=== PATIENT | male | born 1975 | race Caucasian/White ===

== ENCOUNTER 2025-01-11 13:29 | Emergency (ER) | payer OTHER, SELFPAY ==
--- OUTSIDE RECORDS SUMMARY | 2024-12-05 19:00 | XMS_ITS | Continuity of Care Document ---
Author Organization [facility] Address [address] [place] [phone] Phone Care Team Providers Care Assistant Hvac Mechanic Name Role Phone Celine REYES, FACC, Magui Unavailable Unavail able Procedures Procedure Date ELECTROCARDIOGRAM REPORT ELECTROCARDIOGRAM REPORT Advance Directives Directive Yes / No Effective Date File Name No Information Encounters Encounter Description Practice Location Reason(s) For Visit Diagnoses Date Provider Providers Copied on Encounter [facility], [address] [place] [address], [address] [place] [address], tel:[phone] [facility] ER No Information Celine Kilgore. [address] [place] [address], [id number], . tel:[phone] Referring Provider: Magui Gresham, [address] [place] [address], [id number]. tel:[phone] [facility], [address] [place] [address], [id number], tel:[phone] [facility] OP No Information Jossue Jesus. [address] [place] [address], [id number], . tel:[phone] Referring Provider: Edin Marcum, [address] [place] [address], [id number]. tel:[phone] Family History Family Member Type Diagnosis Age At Onset No Information Payers Payer name Insurance type Covered constitution party ID Authoriza tiolya(s) AETNA [facility] [id number] Social History Type Description Quantity Date Captured [...]
[2025-01-11] VITALS (11 sets, daily range): BP systolic 92–111; BP diastolic 50–67; PULSE 76–85; RESP 15–20; TEMP 36.5–37.4; O2SAT 92–98
--- NOTE | ~2025-01-11 | CT_ITS ---
EXAMINATION: CT brain wo con DATE: 01/11/2025 14:26 INDICATION: Fall TECHNIQUE: Computed tomography (CT) of the head was performed without intravenous contrast. The dose-length product was 605.33 mGy-cm. COMPARISON: None FINDINGS: No acute intracranial hemorrhage. No mass effect. No midline shift. No hydrocephalus. No skull fracture. Visualized paranasal sinuses and mastoid air cells are clear. IMPRESSION: 1. No acute intracranial hemorrhage. No mass effect. Reviewed, dictated and finalized at location Q.
--- NOTE | 2025-01-11 13:44 | ECG_ITS ---
Test Date: 2025-01-11 14:01:22 Measurements Intervals [place] Rate: 78 P: 46 [place]: 206 QRS: 54 QRSD: 117 T: 57 QT: 398 QTc: 455 Interpretive Statements SINUS RHYTHM CONSIDER INFERIOR INFARCT, AGE INDETERMINATE BORDERLINE T WAVE ABNORMALITY- HIGH LATERAL LEADS ABNORMAL ECG No previous ECG available for comparison Electronically Signed On 01-11-2025 14:26:03 CDT by Desmond Jarvis D.O.
--- NOTE | 2025-01-11 13:48 | PC.NURSE ---
Blood glucose 72
--- OUTSIDE RECORDS SUMMARY | 2025-01-11 13:48 | XMS_ITS | Clinical Summary ---
Author Organization [facility] Address [address] [place] [address] Care Team Providers Care Locker Room Attendant Name Role Phone Mercedes Clinton Primary Care Provider [phone] Medications furosemide (LASIX) 40 MG tablet FUROSEMIDE 40 MG ORAL TABLET 0 Active potassium chloride 10 MEQ CR tablet POTASSIUM CHLORIDE ER 10 MEQ ORAL TABLET EXTENDED RELEASE 0 Active simvastatin (ZOCOR) 20 MG tablet SIMVASTATIN 20 MG ORAL TABLET 0 Active venlafaxine XR (EFFEXOR-XR) 150 MG 24 hr capsule VENLAFAXINE HCL ER 150 MG ORAL CAPSULE EXTENDED RELEASE 24 HOUR 3 Active Active Problems Problem Noted Date Diagnosed Date 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 04/15/2023 04/15/2023 Bipolar disorder 04/15/2023 04/15/2023 Pure hypercholesterolemia 04/15/20232022 Edema 04/15/2023 04/15/2023 Tobacco dependence syndrome 04/15/202303/19 Social History Tobacco Use Types Packs/Day Years Used Date Smoking Tobacco: Never Assessed Sex and Gender Information Value Date Recorded Sex Assigned at Not on file Legal Sex Male 1:11 PM EDT Gender Identity Not on file Sexual Orientation Not on file Plan of Treatment Health Maintenance Due Date Last Done Comments Hepatitis B Vaccine (1 of 3 - 19+ 3-dose series) 08/15 Pneumococcal Vaccine: 50+ Years (1 of 2 - PCV) 993 Colorectal Cancer Screening: Annual FOBT 2022 Colorectal Cancer Screening: Colonoscopy 2022 Colorectal Cancer Screening: Sigmoidoscopy 2022 Influenza Vaccine (#1) 2025 Insurance [facility] ([id number]) Care Teams Locker Room Attendant Relationship Specialty Start Date End Date Mercedes Clinton [address] [facility] [place] [address] PCP - General Family Medicine 02/16/23
--- OUTSIDE RECORDS SUMMARY | 2025-01-11 13:48 | XMS_ITS | Clinical Summary ---
Author Organization [facility] Address [address] [place] [address] Care Team Providers Care Interlocking Machine Operator Name Role Phone Christopher Sanchez MD Primary Care Provider [phone] Source Comments [facility],non-owned Affiliates and Associated Physician Practices is amultiple site organization consisting of ambulatory clinics and hospital sitesin [place], [place], [place] and [place]. This disclosure is being madepursuant to the Care Everywhere program and may not contain all information available regarding this patient. Last updated 18.[facility] Allergies No known active allergies Medications * Be aware that medications may not be up to date on this document. Alwaysverify current medications with the patient. albuterol HFA (Proventil; Ventolin; Proair) 108 (90 Base) MCG/ACT inhaler once daily 10/07/19 23 Active amLODIPine (Norvasc) 2.5 MG tablet once daily 09/15/19 23 Active ARIPiprazole (Abilify) 10 MG tablet at bedtime 09/15/19 23 Active cephalexin (Keflex) 500 MG capsule once daily Active cyproheptadine (Periactin) 4 MG tablet cyproheptadine 4 mg tablet Active desipramine (Norpramin) 100 MG tablet desipramine 100 mg tablet Active diclofenac sodium (Voltaren) 1 % gel as needed 08/12/19 23 Active fenofibrate (Tricor) 145 MG tablet once daily 09/22/19 23 Active Advair Diskus 250-50 MCG/ACT inhaler once daily 08/28/19 23 Active furosemide (Lasix) 40 MG tablet once daily Active HYDROcodone-ryland taminophen ([place]) 10-325 MG tablet at bedtime Active lithium carbonate (Eskalith) 300 MG capsule lithium carbonate 300 mg capsule Active hydrocortisone valerate (Westcort) 0.2 % cream hydrocortisone valerate 0.2 % topical cream Active Sherman-3 Fatty Acids (fish oil) 1000 MG capsule once daily Active oxyBUTYnin (Ditropan) 5 MG tablet oxybutynin chloride 5 mg tablet Active paliperidone CR 24hr (Invega) 6 MG tablet Invega 6 mg tablet,extended release Active paliperidone palmitate ER (Invega Sustenna) 234 MG/1.5ML injection Invega Sustenna 234 mg/1.5 mL intramuscular syringe Active simvastatin (Zocor) 20 MG tablet simvastatin 20 mg tablet Active Januvia 50 MG tablet 09/10/19 23 Active venlafaxine XR 24hr (Effexor XR) 150 MG capsule venlafaxine ER 150 mg capsule,extended release 24 hr Active Multiple Vitamin (MULTIVITAMIN ADULT PO) Take by mouth once daily Active nicotine (Phonetime Nicotine Transdermal System) 21 MG/24HR patchIndication s:Nicotine Dependence Apply 1 patch to daily X 6 weeks, then apply 14 mg patch daily X 2 weeks (#14 patches), then 7 mg patch daily X 2 weeks (#14 patches) Reasons: Nicotine Addiction 42 patch 10/08/19 23 Active Family History Medical History Relation Name Comments Other - Hepatic/Liver Neg Hx Social History Tobacco Use Types Packs/Day Years Used Date Smoking Tobacco: Every Day Cigarettes Smokeless Tobacco: Never Alcohol Use Standard Drinks/Week Comments Not Currently 0 (1 standard drink = 0.6 oz pure alcohol) none since 2012 - 6 pack a day Sex and Gender Information Value Date Recorded Sex Assigned at Not on file 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 Gender Identity Not on file Sexual Orientation Not on file Last Filed Vital Signs Vital Sign Reading Time Taken Comments Blood Pressure - - Pulse - - Temperature - - Respiratory Rate - - Oxygen Saturation - - Inhaled Oxygen Concentration - - Weight 132.5 kg (292 lb) 10/07/2022 10:54 AM CDT Height 180.3 cm (5' 11) 10/07/2022 10:54 AM CDT Body Mass Index 40.73 10/07/2022 10:54 AM CDT Plan of Treatment Health Maintenance Due Date Last Done Comments COLOGUARD (AGES 45-75) - COL ON CA SCREENING 1973 COLON MONITORING 1973 COLONOSCOPY - COLON CA SCREENING 1973 CT COLONOGRAPHY - COLON CA SCREENING 1973 Colorectal Cancer Screening 1973 FIT - COLON CA SCREENING 1973 FLEX SIG - COLON CA SCREENING 1973 HIV SCREENING 1988 DTAP/TDAP/TD VACCINES (1 - Tdap) 1992 HEPATITIS B VACCINE (1 of 3 - 19+ 3-dose series) 1992 PNEUMOCOCCAL VACCINE 50+ (1 of 2 - PCV) 1992 ZOSTER VACCINE (1 of 2) 08/16/2023 COVID-19 VACCINE (1 - 2023-2 5 season) 2024 DEPRESSION SCREENING 05/17/2024 MEDICARE AWV CALENDAR YEAR 2024 INFLUENZA VACCINE (#1) 2025 SCREENING FOR DIABETES 10/07/2025 10/07/2022 HEPATITIS C SCREENING Completed 10/07/2022 HIB VACCINE Aged Out No longer eligi ble based on patient's age to complete this topic HPV VACCINE Aged Out No longer eligi ble based on patient's age to complete this topic MENINGOCOCCAL (Group B) VACC INE SHARED DECISION-MAKING Aged Out No longer eligibl e based on patient's age to complete this topic MENINGOCOCCAL GROUPS A/C/Y/W VACCINE Aged Out No longer eligible b ased on patient's age to complete this topic Procedures Procedure Name Priority Date/Time Associated Diagnosis Comments COMPREHENSIVE METABOLIC PANEL Routine 10/07/2022 12:36 PM CDT Other ascites HEPATITIS C ANTIBODY Routine 10/07/2022 12:36 PM CDT Other ascites Encounter for screening for other viral diseases from Last 3 Months or Most Recently Relevant to Health Maintenance Results * (ABNORMAL) COMPREHENSIVE METABOLIC PANEL (10/07/2022 12:36 PM CDT) BUN 8 7 - 26 mg/dL 10/07/2022 1:38 PM CDT [facility] Creatinine 1.43(H) 0.71 - 1.16 mg/dL 10/07/2022 1:38 PM CDT [facility] Sodium 143 136 - 145 mmol/L 10/07/2022 1:38 PM CDT [facility] Potassium 3.9 3.5 - 4.5 mmol/L 10/07/2022 1:38 PM [facility] Chloride 106 98 - 107 mmol/L 10/07/2022 1:38 PM [facility] CO2 30(H) 22 - 29 mmol/L 10/07/2022 1:38 PM [facility] Glucose 94 70 - 115 mg/dL 10/07/2022 1:38 PM [facility] Calcium 9.9 8.4 - 10.2 mg/dL 10/07/2022 1:38 PM [facility] Protein Total 7.4 6.0 - 8.3 g/dL 10/07/2022 1:38 PM [facility] Albumin 3.7 3.4 - 5.0 g/dL 10/07/2022 1:38 PM [facility] Bilirubin Total 0.3 0.2 - 1.2 mg/dL 10/07/2022 1:38 PM [facility] Alkaline Phosphatase 51 40 - 150 U/L 10/07/2022 1:38 PM [facility] ALT 20 5 - 55 U/L 10/07/2022 1:38 PM [facility] AST 16 5 - 34 U/L 10/07/2022 1:38 PM [facility] Anion Gap 11 8 - 18 10/07/2022 1:38 PM [facility] BUN/Creatinine Ratio 6(L) 7 - 23 10/07/2022 1:38 PM [facility] Osmolality Calculated 294 270 - 300 mOsm/kg 10/07/2022 1:38 PM [facility] Albumin/Globulin Ratio 1.0(L) 1.1 - 2.3 10/07/2022 1:38 PM [facility] eGFR by CKD-EPI 60(L) >=90 mL/min/1.7 3 m2 10/07/2022 1:38 PM [facility] Blood BLOOD SPECIMEN / Unknown Lab Venipuncture / Unknown 10/07/2022 12:36 PM CDT 10/07/2022 1:03 PM T us Reuben Camejo MD LAB - CHEMISTRY ORDERABLES Fi nal Result Performing Organization Address City/[facility]/ZIP Co de Phone Number [facility] [address] [place] [address], [place] [phone] * HEPATITIS C ANTIBODY (10/07/2022 12:36 PM CDT) Hepatitis C Antibody Non-react [place] Non-reac tive 10/07/2022 2:56 PM CDT [facility] Comment:Hepatitis C Antibody screen indicates no serologic evidence of past or current infection with Hepatitis C Virus. Patients with unexplained liver disease who are immunocompromised or suspected of having acute Hepatitis C infection may benefit from Nucleic Acid Test (ROMAN) for Hepatitis C Viral RNA to confirm Hepatitis C status. Blood BLOOD SPECIMEN / Unknown Lab Venipuncture / Unknown 10/07/2022 12:36 PM CDT 10/07/2022 1:00 PM CDT Reuben Camejo MD LAB - CHEMISTRY ORDERABLES Fi nal Result Performing Organization Address City/[facility]/ZIP Co de Phone Number [facility] [address] [place] [address], [place] [phone] from Last 3 Months or Most Recently Relevant to Health Maintenance Insurance AETNA [facility] MEDICARE ADV Care Teams Interlocking Machine Operator Relationship Specialty Start Date End Date Christopher Sacnhez MD [address] [place] [address] PCP - General Internal Medicine 10/07/22
[2025-01-11 14:07] LABS: Hematocrit 31.0 % (42.0-52.0); Hemoglobin 10.4 g/dL (14.0-18.0); Immature Granulocyte Percent A 0.3 % (0-0.5); Lymphocytes Absolute Auto 1.10 K/mm3 (0.9-3.2); Mean Corpuscular HGB Conc 33.5 g/dl (32-36); Mean Corpuscular Hemoglobin 29.6 pg (26-34); Mean Corpuscular Volume 88.3 fl (80-100); Nucleated Red Blood Cells Absolute Auto 0.000 K/mm3 (0.0-0.012); Nucleated Red Blood Cells Perc 0.0 % (0.0-0.2); Platelet Count Result 163 k/mm3 (150-375); Red Blood Count 3.51 M/mm3 (4.6-6.20); White Blood Count 10.8 K/mm3 (4.5-10.0)
[2025-01-11 14:19] LABS: Alanine Aminotransferase 23 U/L (6-50); Albumin Level 4.1 g/dL (3.5-5.1); Alkaline Phosphatase 61 U/L (38-126); Anion Gap 7 mmol/L (4-12); Aspartate Amino Transferase 25 U/L (17-59); Bilirubin,Total 0.6 mg/dL (0.2-1.3); Blood Urea Nitrogen 25 mg/dL (9-20); Calcium 10.5 mg/dL (8.4-10.2); Carbon Dioxide 26 mmol/L (22-30); Chloride 101 mmol/L (98-107); Estimated CRCL calculation 51 ml/min; Estimated Glomerular Filt Rate 37; Glucose 68 mg/dL (65-110); Potassium 4.9 mmol/L (3.4-5.0); Sodium 134 mmol/L (137-145); Total Protein 7.2 g/dL (6.3-8.2)
[2025-01-11 14:25] LABS: INR 1.0; Prothrombin Time 13.0 Seconds (11.1-14.7)
[2025-01-11 14:29] LABS: Troponin I < 0.012 ng/mL (0.000-0.034)
[2025-01-11] MEDS: SODIUM CHLORIDE 0.9% IV 1,000 ML 999 ML IV CONT (15:30)
--- NOTE | 2025-01-11 16:36 | ED.GENADULT ---
HPI - General Adult General Chief complaint: Fall Stated complaint: fall, low BP Time Seen by Provider: 01/11/25 13:39 Source: patient Mode of arrival: EMS Limitations: no limitations History of Present Illness HPI narrative: 49-year-old with a history of schizophrenia was brought in from assisted living facility with the complaints of fall. He states that he lost his balance and fell. He denied any head and neck injuries. No history of nausea vomiting or abdominal pain. Onset (ago): hour(s) (1) Radiation: non-radiation Exacerbating factors: none Associated symptoms: denies other symptoms Treatments prior to arrival: none Related Data Allergies Allergy/AdvReac Type Severity Reaction Status Date / Time No Known Allergies Allergy Mild Verified 09/07/07 12:41 Review of Systems Review of Systems: All systems reviewed & are unremarkable except as noted in HPI and below Constitutional: Constitutional: Reports no additional constitutional complaints Eyes: Eyes: Reports no additional eye complaints ENT: Reports system reviewed and no additional complaints, except as documented Cardiovascular: Cardiovascular: Reports no additional cardiovascular complaints Respiratory: Respiratory: Reports no additional respiratory complaints Gastrointestinal: Gastrointestinal: Reports no additional gastrointestinal complaints Musculoskeletal: Musculoskeletal: Reports no additional musculoskeletal complaints Neurologic: Reports system reviewed and no additional complaints, except as documented Exam Narrative: GENERAL: Well-appearing, well-nourished, and in no acute distress. HEAD: Normocephalic, atraumatic. EYES: PERRLA and EOMI. ENT: Nares clear, no rhinorrhea or epistaxis. Mucous membranes moist. NECK: Supple. CHEST: Clear to auscultation. No respiratory distress. HEART: Regular rate and rhythm. No murmur heard. Normal peripheral pulses. ABDOMEN: Soft, nontender, nondistended, normal active bowel sounds. EXTREMITIES: Normal range of motion. No edema. SKIN: Warm, dry, no rash. NEURO: No focal deficits. Alert and oriented x3. PSYCH: Normal mood and affect. Course Course Emergency Course: Patient was initially hypotensive with given a L of fluid his blood pressure has improved I did inform him about the lab work, CT findings. He feels comfortable going home Vital Signs Vital signs: Vital Signs Pulse Rate 83 01/11/25 13:35 Respiratory Rate 18 01/11/25 13:35 Blood Pressure 92/50 L 01/11/25 13:35 Pulse Oximetry 93 01/11/25 13:35 Temperature 36.5 C 01/11/25 16:17 Pulse Rate 76 01/11/25 16:17 Respiratory Rate 16 01/11/25 16:17 Blood Pressure 108/67 01/11/25 16:17 Pulse Oximetry 98 01/11/25 16:17 Oxygen Delivery Room Air 01/11/25 13:36 Medical Decision Making MDM Narrative Medical decision making narrative: 49-year-old with a history of schizophrenia brought in from assisted living facility with a complaint of fall no obvious external injuries noted however will do CT of the head and lab work. Differential Diagnosis Differential Diagnosis: Head injury, dehydration Medical Records Medical records reviewed: Yes I reviewed the external patient's medical records. Vital Signs Vital Signs: Vital Signs Pulse Rate 83 01/11/25 13:35 Respiratory Rate 18 01/11/25 13:35 Blood Pressure 92/50 L 01/11/25 13:35 Pulse Oximetry 93 01/11/25 13:35 Temperature 36.5 C 01/11/25 16:17 Pulse Rate 76 01/11/25 16:17 Respiratory Rate 16 01/11/25 16:17 Blood Pressure 108/67 01/11/25 16:17 Pulse Oximetry 98 01/11/25 16:17 Oxygen Delivery Room Air 01/11/25 13:36 Lab Data Lab results reviewed: Yes I reviewed the patient's lab results. 01/11/25 14:02 01/11/25 14:02 Labs: Lab Results 01/11/25 01/11/25 Range/Units 13:46 14:02 WBC 10.8 H (4.5-10.0) K/mm3 RBC 3.51 L (4.6-6.20) M/mm3 Hgb 10.4 L (14.0-18.0) g/dL Hct 31.0 L (42.0-52.0) % MCV 88.3 (80-100) fl MCH 29.6 (26-34) pg MCHC 33.5 (32-36) g/dl RDW 13.3 (11.5-14.5) % Plt Count 163 (150-375) k/mm3 MPV 11.3 H (7.4-10.4) fl Immature Gran % (Auto) 0.3 (0-0.5) % Neut % (Auto) 81.3 H (45.5-73.1) % Lymph % (Auto) 10.2 L (18.3-44.2) % [place] % (Auto) 6.5 (2.6-8.5) % Eos % (Auto) 1.4 (0-4.4) % Baso % (Auto) 0.3 (0.2-1.2) % Lymph # (Auto) 1.10 (0.9-3.2) K/mm3 [place] # (Auto) 0.7 H (0.1-0.6) K/mm3 Eos # (Auto) 0.2 (0-0.3) K/mm3 Baso # (Auto) 0.0 (0.0-0.1) K/mm3 Abs Immat Gran (auto) 0.03 (0.00-0.031) K/mm3 Absolute Neuts (auto) 8.8 H (1.3-6.7) K/mm3 Absolute Nucleated RBC 0.000 (0.0-0.012) K/mm3 Nucleated RBC % 0.0 (0.0-0.2) % PT 13.0 (11.1-14.7) Seconds INR 1.0 Sodium 134 L (137-145) mmol/L Potassium 4.9 (3.4-5.0) mmol/L Chloride 101 (98-107) mmol/L Carbon Dioxide 26 (22-30) mmol/L Anion Gap 7 (4-12) mmol/L BUN 25 H (9-20) mg/dL Creatinine 1.92 H (0.7-1.3) mg/dL Estim Creat Clear Calc 51 ml/min Estimated GFR 37 L (59 - ) Glucose 68 (65-110) mg/dL POC Capillary Glucose 72 (65-105) mg/dl Lactic Acid 1.9 (0.7-2.0) mmol/L Calcium 10.5 H (8.4-10.2) mg/dL Total Bilirubin 0.6 (0.2-1.3) mg/dL AST 25 (17-59) U/L ALT 23 (6-50) U/L Alkaline Phosphatase 61 (38-126) U/L Troponin I < 0.012 (0.000-0.034) ng/mL Total Protein 7.2 (6.3-8.2) g/dL Albumin 4.1 (3.5-5.1) g/dL Imaging Data Radiologist's impression: ITS Impressions Head CT 01/11/25 14:36 IMPRESSION: 1. No acute intracranial hemorrhage. No mass effect. ECG Data EKG #1: ECG completion date: 01/11/25 ECG completion time: 14:01 EKG Interpretation: normal rate (78), sinus rhythm, no ectopy, normal QRS and normal QT Discharge Plan Discharge Clinical Impression: Dehydration Fall Qualifiers: Encounter type: initial encounter Qualified Code(s): W19.XXXA - Unspecified fall, initial encounter Patient Disposition: [place] Alf/Asst Living Condition: Stable Instructions: Contusion in Adults (ED) Additional Instructions: drink more fluids , continue home meds , follow with your doctor. Patient Language: Serbian Follow-up/Referrals: Oswaldo Burk MD [Primary Care Provider, [facility]] Time of Disposition: 16:38
== END 2025-01-11 16:50 ==
PROVIDERS: Emergency Provider Family Medicine; PCP Family Medicine
DX: Z04.3 Encounter for examination and observation following other accident (principal); E86.0 Dehydration; F20.9 Schizophrenia, unspecified; R94.31 Abnormal electrocardiogram [ECG] [EKG]; W18.39XA Other fall on same level, initial encounter
CPT/HCPCS: 36415; 70450; 80053; 82948; 83605; 84484; 85025; 85610; 93005; 96360; 99284; J7030

== ENCOUNTER 2025-01-16 10:13 | Inpatient (IN) | payer OTHER, SELFPAY ==
--- OUTSIDE RECORDS SUMMARY | 2024-12-05 19:00 | XMS_ITS | Continuity of Care Document ---
Author Organization [facility] Address [address] [place] [phone] Phone Care Team Providers Care Children'S Book Author Name Role Phone Celine REYES, FACC, Magui Unavailable Unavail able Procedures Procedure Date ELECTROCARDIOGRAM REPORT ELECTROCARDIOGRAM REPORT Advance Directives Directive Yes / No Effective Date File Name No Information Encounters Encounter Description Practice Location Reason(s) For Visit Diagnoses Date Provider Providers Copied on Encounter [facility], [address] [place] [address], [address] [place] [address], tel:[phone] [facility] ER No Information Celine Kilgore. [address] [place] [address], [id number], . tel:[phone] Referring Provider: Magui Gresham, [address] [place] [address], [id number]. tel:[phone] [facility], [address] [place] [address], [id number], tel:[phone] [facility] OP No Information Jossue Jesus. [address] [place] [address], [id number], . tel:[phone] Referring Provider: Edin Marcum, [address] [place] [address], [id number]. tel:[phone] Family History Family Member Type Diagnosis Age At Onset No Information Payers Payer name Insurance type Covered republican ID Authoriza tion(s) BENITA [facility] [id number] Social History Type Description Quantity Date Captured Comments Sex Male Smoking Status No Information Chief Complaint And Reason For Visit No Information Reason For Referral Reason For Referral No Information History Of Present Illness Encounter Date Complaint History Of Prese nt Illness No Information Functional Status Date Functional Assessmen t No Information Instructions Date Instruction Additional Infor mation No Information Assessments Type Assessment Date No Information Patient Care Teams Name Effective Dates (start - stop) Status Members No Information
--- OUTSIDE RECORDS SUMMARY | 2024-12-05 19:00 | XMS_ITS | Continuity of Care Document ---
Author Organization [facility] Address [address] [place] [phone] Phone Care Team Providers Care Density Control Puncher Name Role Phone Celine REYES, FACC, Magui Unavailable Unavail able Procedures Procedure Date ELECTROCARDIOGRAM REPORT ELECTROCARDIOGRAM REPORT Advance Directives Directive Yes / No Effective Date File Name No Information Encounters Encounter Description Practice Location Reason(s) For Visit Diagnoses Date Provider Providers Copied on Encounter [facility], [address] [place] [address], [address] [place] [address], tel:[phone] [facility] ER No Information Celine Kilgore. [address] [place] [address], [id number], . tel:[phone] Referring Provider: Magui Gresham, [address] [place] [address], [id number]. tel:[phone] [facility], [address] [place] [address], [id number], tel:[phone] [facility] OP No Information Jossue Jesus. [address] [place] [address], [id number], . tel:[phone] Referring Provider: Edin Marcum, [address] [place] [address], [id number]. tel:[phone] Family History Family Member Type Diagnosis Age At Onset No Information Payers Payer name Insurance type Covered democrat ID Authoriza tion(s) [facility]ITA [facility] [id number] Social History Type Description Quantity Date Captured [...]
--- OUTSIDE RECORDS SUMMARY | 2024-12-05 19:00 | XMS_ITS | Continuity of Care Document ---
Author Organization [facility] Address [address] [place] [phone] Phone Care Team Providers Care Hydramatic Mechanic Name Role Phone Celine REYES, FACC, Magui Unavailable Unavail able Procedures Procedure Date ELECTROCARDIOGRAM REPORT ELECTROCARDIOGRAM REPORT Advance Directives Directive Yes / No Effective Date File Name No Information Encounters Encounter Description Practice Location Reason(s) For Visit Diagnoses Date Provider Providers Copied on Encounter [facility], [address] [place] [address], [address] [place] [address], tel:[phone] [facility] ER No Information Celine Kilgore. [address] [place] [address], [id number], . tel:[phone] Referring Provider: Magui Gresham, [address] [place] [address], [id number]. tel:[phone] [facility], [address] [place] [address], [id number], tel:[phone] [facility] OP No Information Jossue Jesus. [address] [place] [address], [id number], . tel:[phone] Referring Provider: Edin Marcum, [address] [place] [address], [id number]. tel:[phone] Family History Family Member Type Diagnosis Age At Onset No Information Payers Payer name Insurance type Covered libertarian ID Authoriza tion(s) BENITA [facility] [id number] Social History Type Description Quantity Date Captured [...]
[2025-01-16] VITALS (27 sets, daily range): BP systolic 107–145; BP diastolic 61–113; PULSE 67–84; RESP 14–21; TEMP 36.7–37; O2SAT 93–100; BMI 31.9
--- NOTE | ~2025-01-16 | US_ITS ---
US renal BI 01/17/2025 14:58 Procedure: Realtime transabdominal ultrasound of the kidneys and bladder. Indication: Acute renal insufficiency Comparison: No prior studies for comparison. Findings: Renal echotexture is normal bilaterally without hydronephrosis, contour deforming mass or renal calculus. The right kidney measures 12.8 cm and left kidney measures 12.5 cm. Bladder is decompressed by Bradley catheter. Impression: 1: Unremarkable renal ultrasound. No stones, masses or hydronephrosis. Reviewed, dictated and finalized at location O. Impression: 1: Unremarkable renal ultrasound. No stones, masses or hydronephrosis.
--- NOTE | ~2025-01-16 | XR_ITS ---
EXAMINATION: XR chest 1V portable 01/16/2025 17:46 INDICATION: Central line placed PROCEDURE: AP portable chest COMPARISON: 07/26/2024 FINDINGS: The lungs are clear. The cardiomediastinal silhouette is within normal limits. There are no pleural effusions. There is no pneumothorax suspected. Right IJ central line tip near the cavoatrial junction. IMPRESSION: 1: NO ACUTE CARDIOPULMONARY DISEASE. Reviewed, dictated and finalized at location O.
--- NOTE | ~2025-01-16 | CT_ITS ---
EXAMINATION: CT brain wo con DATE: 01/16/2025 11:22 INDICATION: Altered mental status TECHNIQUE: Computed tomography (CT) of the head was performed without intravenous contrast. Sagittal and coronal reconstructions were performed. The mA was adjusted according to patient size. Iterative reconstruction technique was employed. The dose-length product was 605.33 mGy-cm. COMPARISON: head CT dated 01/11/2025 FINDINGS: No acute intracranial hemorrhage, acute infarction or abnormal extra axial fluid collection. Ventricles are normal and symmetric. No mass/mass effect. Trace bilateral mastoid effusions. The orbitsand paranasal sinuses are normal. IMPRESSION: 1. No acute intra-abdominal/pelvic process. Reviewed, dictated and finalized at location A.
--- NOTE | 2025-01-16 10:23 | ECG_ITS ---
Test Date: 2025-01-16 10:39:52 Measurements Intervals [place] Rate: 71 P: 237 WA: 160 QRS: 58 QRSD: 122 T: 48 QT: 419 QTc: 457 Interpretive Statements SINUS RHYTHM MODERATE INTRAVENTRICULAR CONDUCTION DELAY [110+ ms QRS DURATION] NONSPECIFIC T-WAVE ABNORMALITY Compared to ECG 01/11/2025 14:01:22 Intraventricular conduction delay now present T-wave abnormality now present Myocardial infarct finding no longer present Electronically Signed On 01-16-2025 10:45:44 CDT by David Maria M.D.
--- OUTSIDE RECORDS SUMMARY | 2025-01-16 10:41 | XMS_ITS | Clinical Summary ---
Author Organization [facility] Address [address] [place] [place] [address] Care Team Providers Care District Home Economics Agent Name Role Phone Christopher Sanchez MD Primary Care Provider [phone] Source Comments [facility],non-owned Affiliates and Associated Physician Practices is amultiple site organization consisting of ambulatory clinics and hospital sitesin [place], [place], [place] and [place]. This disclosure is being madepursuant to the Care Everywhere program and may not contain all information available regarding this patient. 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 Gender Identity Not on file Sexual Orientation [...] - 26 mg/dL 10/07/2022 1:38 PM CDT [facility] Creatinine 1.43(H) 0.71 - 1.16 mg/dL 10/07/2022 1:38 PM CDT [facility] Sodium 143 136 - 145 mmol/L 10/07/2022 1:38 PM CDT [facility] Potassium 3.9 3.5 - 4.5 mmol/L 10/07/2022 1:38 PM [facility] Chloride 106 98 - 107 mmol/L 10/07/2022 1:38 PM [facility] CO2 30(H) 22 - 29 mmol/L 10/07/2022 1:38 PM [facility] Glucose 94 70 - 115 mg/dL 10/07/2022 1:38 PM [facility] Calcium 9.9 8.4 - 10.2 mg/dL 10/07/2022 1:38 PM [facility] Protein Total 7.4 6.0 - 8.3 g/dL 10/07/2022 1:38 PM [facility] Albumin 3.7 3.4 - 5.0 g/dL 10/07/2022 1:38 PM [facility] Bilirubin Total 0.3 0.2 - 1.2 mg/dL 10/07/2022 1:38 PM [facility] Alkaline Phosphatase 51 40 - 150 U/L 10/07/2022 1:38 PM [facility] ALT 20 5 - 55 U/L 10/07/2022 1:38 PM [facility] AST 16 5 - 34 U/L 10/07/2022 1:38 PM [facility] Anion Gap 11 8 - 18 10/07/2022 1:38 PM [facility] BUN/Creatinine Ratio 6(L) 7 - 23 10/07/2022 1:38 PM [facility] Osmolality Calculated 294 270 - 300 mOsm/kg 10/07/2022 1:38 PM [facility] Albumin/Globulin Ratio 1.0(L) 1.1 - 2.3 10/07/2022 1:38 PM [facility] eGFR by CKD-EPI 60(L) >=90 mL/min/1.7 3 m2 10/07/2022 1:38 PM [facility] Blood BLOOD SPECIMEN / Unknown Lab Venipuncture / Unknown 10/07/2022 12:36 PM CDT 10/07/2022 1:03 PM T us Reuben Camejo MD LAB - CHEMISTRY ORDERABLES Fi nal Result Performing Organization Address City/[facility]/ZIP Co de Phone Number [facility] [address] [place] [address], [place] [phone] * HEPATITIS C ANTIBODY (10/07/2022 12:36 PM CDT) Hepatitis C Antibody Non-react [place] Non-reac tive 10/07/2022 2:56 PM CDT [facility] Comment:Hepatitis C Antibody screen indicates no serologic [...] ORDERABLES Fi nal Result Performing Organization Address City/[facility]/ZIP Co de Phone Number [facility] [address] [place] [address], [place] [phone] from Last 3 Months or Most Recently Relevant to Health Maintenance Insurance [employer] [facility] MEDICARE ADV Care Teams District Home Economics Agent Relationship Specialty Start Date End Date Christopher Sanchez MD [address] [place] [address] PCP - General Internal Medicine 10/07/22
--- OUTSIDE RECORDS SUMMARY | 2025-01-16 10:41 | XMS_ITS | Clinical Summary ---
Author Organization [facility] Address [address] [place] [address] Care Team Providers Care Reference Data Expert Name Role Phone Mercedes Clinton Primary Care Provider [phone] Medications furosemide (LASIX) 40 MG tablet FUROSEMIDE [...] Diagnosed Date Atherosclerotic heart diseas [place] coronary artery without angina pectoris 04/15/2023 04/15/2023 [...] Sigmoidoscopy 2022 Influenza Vaccine (#1) 2025 Insurance [facility] ([id number]) Care Teams Reference Data Expert Relationship Specialty Start Date End Date Mercedes Clinton [address] [facility] [place] [address] PCP - General Family Medicine 02/16/23
[2025-01-16] MEDS: SODIUM CHLORIDE 0.9% IV 1,000 ML 999 ML IV CONT ×2 (11:04→17:15)
[2025-01-16 11:19] LABS: Hematocrit 31.0 % (42.0-52.0); Hemoglobin 10.3 g/dL (14.0-18.0); Immature Granulocyte Percent A 0.6 % (0-0.5); Lymphocytes Absolute Auto 0.85 K/mm3 (0.9-3.2); Mean Corpuscular HGB Conc 33.2 g/dl (32-36); Mean Corpuscular Hemoglobin 29.6 pg (26-34); Mean Corpuscular Volume 89.1 fl (80-100); Nucleated Red Blood Cells Absolute Auto 0.000 K/mm3 (0.0-0.012); Nucleated Red Blood Cells Perc 0.0 % (0.0-0.2); Platelet Count Result 181 k/mm3 (150-375); Red Blood Count 3.48 M/mm3 (4.6-6.20); White Blood Count 11.7 K/mm3 (4.5-10.0)
[2025-01-16 11:25] LABS: Add Urine Microscopic? YES; Appearance Urine Cloudy (Clear); Glucose Urine UA Negative (Negative); Leukocyte Esterase Ur Trace LEU/UL (Negative); Nitrate Urine Negative (Negative); Specific Grav Ur 1.012 (1.001-1.035)
[2025-01-16 11:29] LABS: Alanine Aminotransferase 17 U/L (6-50); Albumin Level 4.3 g/dL (3.5-5.1); Alkaline Phosphatase 111 U/L (38-126); Anion Gap 9 mmol/L (4-12); Aspartate Amino Transferase 25 U/L (17-59); Bilirubin,Total 0.7 mg/dL (0.2-1.3); Blood Urea Nitrogen 48 mg/dL (9-20); Calcium 10.3 mg/dL (8.4-10.2); Carbon Dioxide 25 mmol/L (22-30); Chloride 100 mmol/L (98-107); Estimated Glomerular Filt Rate 18; Glucose 73 mg/dL (65-110); Potassium 4.8 mmol/L (3.4-5.0); Sodium 134 mmol/L (137-145); Total Protein 7.6 g/dL (6.3-8.2)
[2025-01-16 11:37] LABS: INR 1.1; Prothrombin Time 13.7 Seconds (11.1-14.7)
[2025-01-16 11:38] LABS: Partial Thromboplastin Time 30.1 Seconds (22.3-36.8)
--- OUTSIDE RECORDS SUMMARY | 2025-01-16 12:01 | XMS_ITS | Clinical Summary ---
Author Organization [facility] Address [address] [place] [address] Care Team Providers Care General Cargo Clerk Name Role Phone Mercedes Clinton Primary Care Provider Medications furosemide (LASIX) 40 MG tablet FUROSEMIDE [...] Diagnosed Date Atherosclerotic heart diseas e of [place] coronary artery without angina pectoris 04/15/2023 04/15/2023 [...] Sigmoidoscopy 2022 Influenza Vaccine (#1) 2025 Insurance [facility] ([id number]) Care Teams General Cargo Clerk Relationship Specialty Start Date End Date Mercedes Clinton [address] [facility] [place] [address] PCP - General Family Medicine 02/16/23
--- OUTSIDE RECORDS SUMMARY | 2025-01-16 12:01 | XMS_ITS | Clinical Summary ---
Author Organization [facility] Address [address] [place] [address] Care Team Providers Care Business Reporting Developer Name Role Phone Christopher Sanchez MD Primary Care Provider [phone] Source Comments [facility],non-owned Affiliates and Associated Physician Practices is amultiple site organization consisting of ambulatory clinics and hospital sitesin [place], [place], [place] and [place]. This disclosure is being madepursuant to the Care Everywhere program and may not contain all information available regarding this patient. 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 Gender Identity Not on file Sexual Orientation [...] - 26 mg/dL 10/07/2022 1:38 PM CDT [facility] Creatinine 1.43(H) 0.71 - 1.16 mg/dL 10/07/2022 1:38 PM CDT [facility] Sodium 143 136 - 145 mmol/L 10/07/2022 1:38 PM CDT [facility] Potassium 3.9 3.5 - 4.5 mmol/L 10/07/2022 1:38 PM [facility] Chloride 106 98 - 107 mmol/L 10/07/2022 1:38 PM [facility] CO2 30(H) 22 - 29 mmol/L 10/07/2022 1:38 PM [facility] Glucose 94 70 - 115 mg/dL 10/07/2022 1:38 PM [facility] Calcium 9.9 8.4 - 10.2 mg/dL 10/07/2022 1:38 PM [facility] Protein Total 7.4 6.0 - 8.3 g/dL 10/07/2022 1:38 PM [facility] Albumin 3.7 3.4 - 5.0 g/dL 10/07/2022 1:38 PM [facility] Bilirubin Total 0.3 0.2 - 1.2 mg/dL 10/07/2022 1:38 PM [facility] Alkaline Phosphatase 51 40 - 150 U/L 10/07/2022 1:38 PM [facility] ALT 20 5 - 55 U/L 10/07/2022 1:38 PM [facility] AST 16 5 - 34 U/L 10/07/2022 1:38 PM [facility] Anion Gap 11 8 - 18 10/07/2022 1:38 PM [facility] BUN/Creatinine Ratio 6(L) 7 - 23 10/07/2022 1:38 PM [facility] Osmolality Calculated 294 270 - 300 mOsm/kg 10/07/2022 1:38 PM [facility] Albumin/Globulin Ratio 1.0(L) 1.1 - 2.3 10/07/2022 1:38 PM [facility] eGFR by CKD-EPI 60(L) >=90 mL/min/1.7 3 m2 10/07/2022 1:38 PM [facility] Blood BLOOD SPECIMEN / Unknown Lab Venipuncture / Unknown 10/07/2022 12:36 PM CDT 10/07/2022 1:03 PM T us Reuben Camejo MD LAB - CHEMISTRY ORDERABLES Fi nal Result Performing Organization Address City/[facility]/ZIP Co de Phone Number [facility] [address] [place] [address], [place] [phone] * HEPATITIS C ANTIBODY (10/07/2022 12:36 PM CDT) Hepatitis C Antibody Non-react [place] Non-reac tive 10/07/2022 2:56 PM CDT [facility] Comment:Hepatitis C Antibody screen indicates no [...] ORDERABLES Fi nal Result Performing Organization Address City/[facility]/ZIP Co de Phone Number [facility] [address] [place] [address], [place] [phone] from Last 3 Months or Most Recently Relevant to Health Maintenance Insurance AETNA [facility] MEDICARE ADV Care Teams Business Reporting Developer Relationship Specialty Start Date End Date Christopher Sanchez MD [address] [facility] [place] [address] PCP - General Internal Medicine 10/07/22
[2025-01-16] MEDS: OLANZapine 5 MG, WATER, STERILE FOR INJECTION 2.1 ML IM (13:17)
--- NOTE | 2025-01-16 13:20 | ED.AMS ---
HPI - Altered Mental Status General Chief Complaint: Altered Mental Status Stated Complaint: ams Time Seen by Provider: 01/16/25 10:55 Source: patient Mode of arrival: EMS Limitations: altered mental status History of Present Illness HPI narrative: 49-year-old with a history of schizoaffective disorder , hypertension, diabetes was sent in from [address] a complains of altered mental status patient was seen few days ago by me was diagnosed with urinary tract infection. Patient presently denies having any headache or chest pain. He seems to be confused. MD complaint: confusion Onset (ago): hour(s) (1) Severity: mild Associated symptoms: denies other symptoms Related Data Home Medications ?Medication ?Instructions ?Recorded ?Confirmed ?Last Taken ?Type albuterol sulfate 90 mcg/actuation 1 puff inhalation Q4H PRN 07/26/24 07/26/24 07/24/24 History aerosol inhaler shortness of breath or wheezing amlodipine 5 mg tablet 5 mg PO DAILY 07/26/24 07/26/24 07/25/24 History aripiprazole 10 mg tablet 5 mg PO DAILY 07/26/24 07/26/24 07/25/24 History aspirin 81 mg capsule 81 mg PO DAILY 07/26/24 07/26/24 07/25/24 History benztropine 1 mg tablet 1 mg PO HS 07/26/24 07/26/24 07/25/24 History desipramine 150 mg tablet 150 mg PO HS 07/26/24 07/26/24 07/25/24 History diclofenac sodium 1 % topical gel See Rx Instructions topical 07/26/24 07/26/24 07/25/24 History .COMPLEX fluticasone 250 mcg-salmeterol 50 1 inh inhalation Q12H 07/26/24 07/26/24 07/25/24 History mcg/dose blistr powdr for inhalation folic acid 1 mg tablet 1 mg PO DAILY 07/26/24 07/26/24 07/25/24 History gabapentin 300 mg capsule 300 mg PO Q12H 07/26/24 07/26/24 07/25/24 History lithium carbonate 300 mg capsule 300 mg PO BID 07/26/24 07/26/24 07/25/24 History losartan 50 mg-hydrochlorothiazide 1 tablet PO DAILY 07/26/24 07/26/24 07/25/24 History 12.5 mg tablet metformin 1,000 mg tablet 1,000 mg PO BID 07/26/24 07/26/24 07/25/24 History omega 5-pwt-nqm-fish oil 1,000 mg 1 cap PO HS 07/26/24 07/26/24 07/25/24 History (120 mg-180 mg) capsule (Fish Oil) oxybutynin chloride 15 mg 15 mg PO DAILY 07/26/24 07/26/24 07/25/24 History tablet,extended release 24 hr sennosides 8.6 mg-docusate sodium 2 tab-cap PO HS 07/26/24 07/26/24 07/21/24 History 50 mg tablet (Senna-Time S) simvastatin 40 mg tablet 40 mg PO QPM 07/26/24 07/26/24 07/25/24 History sitagliptin phosphate 50 mg tablet 50 mg PO DAILY 07/26/24 07/26/24 07/25/24 History (Januvia) venlafaxine 150 mg 300 mg PO DAILY 07/26/24 07/26/24 07/25/24 History capsule,extended release 24 hr paliperidone palm (3 month) 819 819 mg IM .every 3 months 07/28/24 07/28/24 Unknown History mg/2.63 mL intramuscular syringe (Invega Trinza) Allergies Allergy/AdvReac Type Severity Reaction Status Date / Time No Known Allergies Allergy Mild Verified 01/12/25 13:59 Review of Systems Review of Systems: All systems reviewed & are unremarkable except as noted in HPI and below Constitutional: Constitutional: Reports no additional constitutional complaints ENT: Reports system reviewed and no additional complaints, except as documented Cardiovascular: Cardiovascular: Reports no additional cardiovascular complaints Respiratory: Respiratory: Reports no additional respiratory complaints Gastrointestinal: Gastrointestinal: Reports no additional gastrointestinal complaints Musculoskeletal: Musculoskeletal: Reports no additional musculoskeletal complaints Integumentary/Breasts: Skin/Breast: Reports system reviewed and no additional complaints, except as docu Neurologic: Reports system reviewed and no additional complaints, except as documented Psychiatric: Psychiatric: Reports no additional psychiatric complaints PMFSH Past Medical History Medical History Self-care deficit Hyperkalemia Schizophrenia Posttraumatic stress disorder Depression with anxiety Type 2 diabetes mellitus Obstructive sleep apnea on CPAP Hyperlipidemia Hypertension Tobacco dependence Asthma Chronic obstructive pulmonary disease Surgical History Surgical History History of appendectomy Social History Social History Social History: Surrogate medical decision maker: Vicky Mancia, sister ([phone]). Code status: Full code. Smoking packs per day: 2 Smoking cigarettes per day: 40.0 Smoking status: Current every day smoker Tobacco type: cigarettes Alcohol intake: never Substance use: never Spiritual care concerns: No Exam Narrative: GENERAL: Well-appearing, well-nourished, and in no acute distress. HEAD: Normocephalic, atraumatic. EYES: PERRLA and EOMI. ENT: Nares clear, no rhinorrhea or epistaxis. Mucous membranes dry NECK: Supple. CHEST: Clear to auscultation. No respiratory distress. HEART: Regular rate and rhythm. No murmur heard. Normal peripheral pulses. ABDOMEN: Soft, nontender, nondistended, normal active bowel sounds. EXTREMITIES: Normal range of motion. No edema. SKIN: Warm, dry, no rash. NEURO: No focal deficits. Alert and oriented x1 PSYCH: Normal mood and affect. Course Course Emergency Course: Patient is quite confused. He pulled his IV line off. I did give him Zyprexa . Will admit him to the hospital for dehydration. Discussed with the hospitalist accepted the patient Vital Signs Vital signs: Vital Signs Temperature 36.8 C 01/16/25 10:16 Pulse Rate 70 01/16/25 10:16 Respiratory Rate 16 01/16/25 10:16 Blood Pressure 110/61 01/16/25 10:16 Pulse Oximetry 96 01/16/25 10:16 Oxygen Delivery Room Air 01/16/25 10:16 Temperature 36.8 C 01/16/25 10:16 Pulse Rate 80 01/16/25 13:17 Respiratory Rate 17 01/16/25 13:17 Blood Pressure 108/66 01/16/25 13:17 Pulse Oximetry 96 01/16/25 13:17 Oxygen Delivery Room Air 01/16/25 10:21 MDM - Altered Mental Status Differential Diagnosis Differential diagnosis: Likely altered mental status, dementia and hyponatremia Medical Records Attestation: I reviewed the patient's medical records. Lab Data Attestation: I reviewed the patient's lab results. 01/16/25 10:45 01/16/25 10:45 Labs: Lab Results 01/16/25 01/16/25 Range/Units 10:45 11:15 WBC 11.7 H (4.5-10.0) K/mm3 RBC 3.48 L (4.6-6.20) M/mm3 Hgb 10.3 L (14.0-18.0) g/dL Hct 31.0 L (42.0-52.0) % MCV 89.1 (80-100) fl MCH 29.6 (26-34) pg MCHC 33.2 (32-36) g/dl RDW 13.2 (11.5-14.5) % Plt Count 181 (150-375) k/mm3 MPV 11.6 H (7.4-10.4) fl Immature Gran % (Auto) 0.6 H (0-0.5) % Neut % (Auto) 84.9 H (45.5-73.1) % Lymph % (Auto) 7.3 L (18.3-44.2) % Gooding % (Auto) 5.4 (2.6-8.5) % Eos % (Auto) 1.5 (0-4.4) % Baso % (Auto) 0.3 (0.2-1.2) % Lymph # (Auto) 0.85 L (0.9-3.2) K/mm3 [place] # (Auto) 0.6 (0.1-0.6) K/mm3 Eos # (Auto) 0.2 (0-0.3) K/mm3 Baso # (Auto) 0.0 (0.0-0.1) K/mm3 Abs Immat Gran (auto) 0.07 H (0.00-0.031) K/mm3 Absolute Neuts (auto) 10.0 H (1.3-6.7) K/mm3 Absolute Nucleated RBC 0.000 (0.0-0.012) K/mm3 Nucleated RBC % 0.0 (0.0-0.2) % PT 13.7 (11.1-14.7) Seconds INR 1.1 APTT 30.1 (22.3-36.8) Seconds Sodium 134 L (137-145) mmol/L Potassium 4.8 (3.4-5.0) mmol/L Chloride 100 (98-107) mmol/L Carbon Dioxide 25 (22-30) mmol/L Anion Gap 9 (4-12) mmol/L BUN 48 H D (9-20) mg/dL Creatinine 3.63 H (0.7-1.3) mg/dL Estim Creat Clear Calc Not Reportable Estimated GFR 18 L (59 - ) Glucose 73 (65-110) mg/dL Lactic Acid 0.9 (0.7-2.0) mmol/L Calcium 10.3 H (8.4-10.2) mg/dL Total Bilirubin 0.7 (0.2-1.3) mg/dL AST 25 (17-59) U/L ALT 17 (6-50) U/L Alkaline Phosphatase 111 (38-126) U/L Total Protein 7.6 (6.3-8.2) g/dL Albumin 4.3 (3.5-5.1) g/dL Urine Color Yellow (Yellow) Urine Appearance Cloudy H (Clear) Urine pH 5.5 (5.0-9.0) Ur Specific Pep 1.012 (1.001-1.035) Urine Protein Negative (Negative) mg/dL Urine Glucose (UA) Negative (Negative) mg/dL Urine Ketones Trace H (Negative) mg/dL Ur Blood (Man) Negative (Negative) Urine Nitrate Negative (Negative) Urine Bilirubin Negative (Negative) Urine Urobilinogen 0.2 (<2.0) mg/dL Leukocyte Esterase Rfl Trace H (Negative) ELAINA/UL Urine RBC 0-2 (0-2) /hpf Urine WBC 0-5 (0-3) /hpf Ur Squamous Epith Cells Occasional (Few) /hpf Urine Bacteria None seen /hpf Urine Casts 3-5 Imaging Data Radiologist's impression: ITS Impressions Head CT 01/16/25 11:27 IMPRESSION: 1. No acute intra-abdominal/pelvic process. Discharge Plan Discharge Clinical Impression: GRUPO (acute kidney injury) AMS (altered mental status) Qualifiers: Altered mental status type: unspecified Qualified Code(s): R41.82 - Altered mental status, unspecified Patient Disposition: Still a Patient Condition: Stable Patient Language: Citizen Of [place] Prescriptions: No Action albuterol sulfate 90 mcg/actuation HFA aerosol inhaler 1 puff INHALATION Q4H PRN (Reason: shortness of breath or wheezing) sennosides-docusate sodium [Senna-Time S] 8.6-50 mg tablet 2 tab-cap PO HS fluticasone propion-salmeterol 250-50 mcg/dose blister with device 1 inh INHALATION Q12H lithium carbonate 300 mg capsule 300 mg PO BID metformin 1,000 mg tablet 1,000 mg PO BID gabapentin 300 mg capsule 300 mg PO Q12H losartan-hydrochlorothiazide 50-12.5 mg tablet 1 tablet PO DAILY diclofenac sodium 1 % gel See Rx Instructions TOPICAL .COMPLEX Rx Instructions: apply to bilateral knees bid topically; oxybutynin chloride 15 mg tablet extended release 24hr 15 mg PO DAILY venlafaxine 150 mg capsule,extended release 24hr 300 mg PO DAILY aripiprazole 10 mg tablet 5 mg PO DAILY Januvia 50 mg tablet 50 mg PO DAILY aspirin 81 mg capsule 81 mg PO DAILY folic acid 1 mg tablet 1 mg PO DAILY amlodipine 5 mg tablet 5 mg PO DAILY simvastatin 40 mg tablet 40 mg PO QPM benztropine 1 mg tablet 1 mg PO HS desipramine 150 mg tablet 150 mg PO HS omega 8-[id number]-kqu-fish oil [Fish Oil] 1,000 (120-180) mg capsule 1 cap PO HS Invega Trinza 819 mg/2.63 mL syringe 819 mg IM .every 3 months Patient Comments: Due August 02 polyethylene glycol 3350 [Miralax] 17 gram Powder In Packet 17 g PO QAM Qty: 30 0RF nicotine [Nicoderm CQ] 21 mg/24 hr Patch 24 Hour 1 patch transdermal DAILY Qty: 7 0RF albuterol sulfate [Ventolin HFA] 90 mcg/actuation HFA aerosol inhaler 1 inh inhalation QID Qty: 6.7 0RF methylprednisolone [Medrol (Jamie)] 4 mg tablets,dose pack See Rx Instructions .ROUTE .COMPLEX Qty: 21 0RF Rx Instructions: for 6 days Follow-up/Referrals: Oswaldo Burk MD [Primary Care Provider, Family Practice] Time of Disposition: 13:21
[2025-01-16] MEDS: SODIUM CHLORIDE 0.9% IV 1,000 ML 125 ML IV CONT ×2 (13:42→22:21)
--- NOTE | 2025-01-16 14:24 | P.HP_ITS ---
H&P: HPI History of Present Illness Date/Time: 01/16/25 14:24 Chief Complaint: Altered mental status Narrative: 49-year-old male with past medical history of schizoaffective disorder, hypertension diabetes presents the hospital with altered mental status. Patient presented to the ED a few days ago was diagnosed with a UTI, dehydration and discharged back to his long term. HPI is limited as patient only knows name. Lab work in the ED shows leukocytosis at 11.7, hemoglobin of 10.3, sodium 134, BUN of 48, creatinine of 3.63 with baseline being about 1.32 GFR 18, calcium 10.3 UA is cloudy with trace leukocyte esterase. Head CT has no acute findings. Upon medication review patient is on lithium will order lithium level. [place] level 2.5. Poison Control recommends dialysis, trending lithium levels, aggressive fluid hydration. Nephrology called will make arrangements with dialysis nurse. Surgery called will place emergent Shimon. ICU accepts patient Review of Systems Review of Systems: ROS unobtainable: Yes unobtainable due to mental status [facility] Past Medical History Medical History (Updated 01/16/25 @ 17:38 by Ashia Richmond, CHINTAN) Self-care deficit Hyperkalemia Schizophrenia Posttraumatic stress disorder Depression with anxiety Type 2 diabetes mellitus Obstructive sleep apnea on CPAP Hyperlipidemia Hypertension Tobacco dependence Asthma Chronic obstructive pulmonary disease Surgical History Surgical History History of appendectomy Social History Social History Social History: Surrogate medical decision maker: Vicky Mancia, sister ([phone]). Code status: Full code. Smoking packs per day: 2 Smoking cigarettes per day: 40.0 Smoking status: Unknown if ever smoked Tobacco type: cigarettes Alcohol intake: unknown Substance use: unknown Spiritual care concerns: No Meds Home Medications and Allergies Home Medications ?Medication ?Instructions ?Recorded ?Confirmed ?Type aripiprazole 10 mg tablet 5 mg PO HS 07/26/24 01/16/25 History aspirin 81 mg capsule 81 mg PO DAILY 07/26/2407/11 History benztropine 1 mg tablet 1 mg PO HS 07/26/24 01/16/25 History desipramine 150 mg tablet 150 mg PO HS 07/26/24 History diclofenac sodium 1 % topical gel See Rx Instructions topical 07/26/24 01/16/25 History .COMPLEX PRN pain fluticasone 250 mcg-salmeterol 50 1 inh inhalation Q12 H 07/26/24 01/16/25 History mcg/dose blistr powdr for inhalation folic acid 1 mg tablet 1 mg PO DAILY 07/26/2401/16 History gabapentin 300 mg capsule 300 mg PO Q12H 07/26/2407/15 History lithium carbonate 300 mg capsule 300 mg PO BID 5 01/16/25 History losartan 50 mg-hydrochlorothiazide 1 tablet PO DAILY 0 07/26/24 01/16/25 History 12.5 mg tablet metformin 1,000 mg tablet 1,000 mg PO BID 07/26/2407/11 History omega 9-zme-ofo-fish oil 1,000 mg 1 cap PO HS 07/26/24 01/16/25 History (120 mg-180 mg) capsule (Fish Oil) oxybutynin chloride 15 mg 15 mg PO DAILY 07/26/2407/15 History tablet,extended release 24 hr sennosides 8.6 mg-docusate sodium 2 tab-cap PO HS PRN constipation 07/26/24 01/16/25 History 50 mg tablet (Senna-Time S) simvastatin 40 mg tablet 40 mg PO HS 07/26/24 5 History sitagliptin phosphate 50 mg tablet 50 mg PO DAILY 07/1501/16/25 History (Januvia) venlafaxine 150 mg 300 mg PO DAILY 07/26/2407/11 History capsule,extended release 24 hr paliperidone palm (3 month) 819 819 mg IM .every 3 mon ths 07/28/24 01/16/25 History mg/2.63 mL intramuscular syringe (Invega Trinza) albuterol sulfate 90 mcg/actuation 1 inh inhalation QI D PRN shortness 01/16/25 01/16/25 History aerosol inhaler (Ventolin HFA) of breath or wheezing desipramine 150 mg tablet 150 mg PO HS 01/16/25 History nicotine 21 mg/24 hr daily 1 patch transdermal DAILY P RN 01/16/25 01/16/25 History transdermal patch (Nicoderm CQ) withdrawal symptoms polyethylene glycol 3350 17 gram 17 g PO QAM PRN const ipation 01/16/25 01/16/25 History oral powder packet (Miralax) Allergies Allergy/AdvReac Type Severity Reaction Status Date / Time No Known Allergies Allergy Mild Verified 01/12/25 13:59 Vital Signs Vital Signs - 24 hr 01/16/25 10:16 01/16/25 10:21 01/16/25 11:06 Temperature 98.3 F Pulse Rate 70 73 Respiratory Rate 16 20 Blood Pressure 110/61 107/66 Pulse Oximetry 96 100 Oxygen Delivery Room Air Room Air 01/16/25 12:25 01/16/25 13:17 01/16/25 13:43 Temperature Pulse Rate 73 80 74 Respiratory Rate 14 17 17 Blood Pressure 126/86 108/66 112/65 Pulse Oximetry 97 96 98 Oxygen Delivery Exam Narrative: General: Ill, older than stated age, blankly stares HEENT: normocephalic, atraumatic. Mucous membranes moist. EOMI, PERRLA, bilateral sclera anicteric, no conjunctival injection. Neck supple without JVD, lymphadenopathy, or bruit. Respiratory: clear to ascultation bilaterally. No rales/rhonic/wheezes. Cardiovascular: Regular rate and rhythm, normal S1-S2 upon ascultation. No murmurs, rubs, or clicks. PMI is nondisplaced, capillary refill less than 3 second. Abdomen: Soft, round, no pulsatile masses, nondistended and nontender. No rebound, no guarding. No CVA tenderness, no hepatosplenomegaly. Bowel sounds present to all four quadrants. No high pitch or tinkling sounds, resonant to percussion. Extremities: No cyanosis, clubbing, or edema present. Pulses are palpable 2/2. Active ROM to all four extremities. Lower extremities with some erythema however they are not swollen or tender to palpation. Neuro: Alert and orientated x 1. PERRLA. Skin: Warm, dry, and intact, without rash, erythema, or lesion. Psych: Unable to assess H&P: Results Labs Labs: Short CBC 01/16/25 Range/Units 10:45 WBC 11.7 H (4.5-10.0) K/mm3 Hgb 10.3 L (14.0-18.0) g/dL Hct 31.0 L (42.0-52.0) % Plt Count 181 (150-375) k/mm3 BMP 01/16/25 10:45 Sodium 134 L Potassium 4.8 Chloride 100 Carbon Dioxide 25 BUN 48 H D Creatinine 3.63 H Glucose 73 Calcium 10.3 H Liver Function 01/16/25 Range/Units 10:45 Total Bilirubin 0.7 (0.2-1.3) mg/dL AST 25 (17-59) U/L ALT 17 (6-50) U/L Alkaline Phosphatase 111 (38-126) U/L Albumin 4.3 (3.5-5.1) g/dL Urine 01/16/25 Range/Units 11:15 Urine Color Yellow (Yellow) Urine Appearance Cloudy H (Clear) Urine pH 5.5 (5.0-9.0) Ur Specific [place] 1.012 (1.001-1.035) Urine Protein Negative (Negative) mg/dL Urine Glucose (UA) Negative (Negative) mg/dL Assessment and Plan Assessment and plan (1) [place] toxicity: Code(s): T56.891A - Toxic effect of other metals, accidental (unintentional), initial encounter Status: Acute Assessment and Plan: Likely due to acute GRUPO, however intermediate had mention to the nurse they do not believe he can manage his medications in more Poison control Transferred ICU Emergent dialysis Trend lithium level, sodium and potassium Aggressive fluid hydration Bradley catheter [place] level after dialysis is 1.1 Ethanol, tox screen, acetaminophen levels negative Repeat labs in the morning (2) Schizophrenia: Code(s): F20.9 - Schizophrenia, unspecified Status: Acute Assessment and Plan: [place] level 2.5 Currently holding lithium Okay for Effexor and Abilify (3) GRUPO (acute kidney injury): Code(s): N17.9 - Acute kidney failure, unspecified Status: Acute Assessment and Plan: Nephrology consulted Will do emergent dialysis for lithium toxicity Aggressive fluid hydration Creatinine after dialysis is 1.4 which is close to baseline Renal diet (4) AMS (altered mental status): Qualifiers: Altered mental status type: unspecified Qualified Code(s): R41.82 - Altered mental status, unspecified Code(s): R41.82 - Altered mental status, unspecified Status: Acute Assessment and Plan: Metabolic versus infection versus other Likely lithium toxicity due to acute renal failure Frequent neuro checks (5) Hyperkalemia: Code(s): E87.5 - Hyperkalemia Status: Acute Assessment and Plan: Patient will be receiving dialysis (6) Hypertension: Code(s): I10 - Essential (primary) hypertension Status: Chronic Assessment and Plan: Holding hydrochlorothiazide, metformin, gabapentin due to GRUPO (7) Type 2 diabetes mellitus: Code(s): E11.9 - Type 2 diabetes mellitus without complications Status: Acute Assessment and Plan: Renal diet Accu-Cheks SSI Hold home diabetic medications SSI and hypoglycemia protocol (8) UTI (urinary tract infection): Code(s): N39.0 - Urinary tract infection, site not specified Status: Acute Assessment and Plan: IV Rocephin Culture and sensitivity pending Quality VTE Prophylaxis VTE prophylaxis: mechanical ordered Hospitalist MIPS Advance Care Plan I have confirmed that the patient's Advanced Care Plan is present, code status is documented, or surrogate decision maker is listed in patient medical record.: Yes Medication Reconciliation I have utilized all available resources to obtain, update and review the pat ients current medications (includes all prescriptions, OTC, herbals, cannabis, and nutritional supplements).: Yes
[2025-01-16] MEDS: cefTRIAXone 1 GM in SODIUM CHLORIDE 0.9% IV 50 ML 100 ML IVPB (14:52)
--- OUTSIDE RECORDS SUMMARY | 2025-01-16 15:08 | XMS_ITS | Clinical Summary ---
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 This disclosure is being madepursuant to the Care Everywhere program and may not contain all information available regarding this patient. 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 Gender Identity Not on file Sexual Orientation [...] - 26 mg/dL 10/07/2022 1:38 PM CDT [facility] Creatinine 1.43(H) 0.71 - 1.16 mg/dL 10/07/2022 1:38 PM CDT [facility] Sodium 143 136 - 145 mmol/L 10/07/2022 1:38 PM CDT [facility] Potassium 3.9 3.5 - 4.5 mmol/L 10/07/2022 1:38 PM [facility] Chloride 106 98 - 107 mmol/L 10/07/2022 1:38 PM [facility] CO2 30(H) 22 - 29 mmol/L 10/07/2022 1:38 PM [facility] Glucose 94 70 - 115 mg/dL 10/07/2022 1:38 PM [facility] Calcium 9.9 8.4 - 10.2 mg/dL 10/07/2022 1:38 PM [facility] Protein Total 7.4 6.0 - 8.3 g/dL 10/07/2022 1:38 PM [facility] Albumin 3.7 3.4 - 5.0 g/dL 10/07/2022 1:38 PM [facility] Bilirubin Total 0.3 0.2 - 1.2 mg/dL 10/07/2022 1:38 PM [facility] Alkaline Phosphatase 51 40 - 150 U/L 10/07/2022 1:38 PM [facility] ALT 20 5 - 55 U/L 10/07/2022 1:38 PM [facility] AST 16 5 - 34 U/L 10/07/2022 1:38 PM [facility] Anion Gap 11 8 - 18 10/07/2022 1:38 PM [facility] BUN/Creatinine Ratio 6(L) 7 - 23 10/07/2022 1:38 PM [facility] Osmolality Calculated 294 270 - 300 mOsm/kg 10/07/2022 1:38 PM [facility] Albumin/Globulin Ratio 1.0(L) 1.1 - 2.3 10/07/2022 1:38 PM [facility] eGFR by CKD-EPI 60(L) >=90 mL/min/1.7 3 m2 10/07/2022 1:38 PM [facility] Blood BLOOD SPECIMEN / Unknown Lab Venipuncture / Unknown 10/07/2022 12:36 PM CDT 10/07/2022 1:03 PM T us Reuben Camejo MD LAB - CHEMISTRY ORDERABLES Fi nal Result Performing Organization Address City/[facility]/ZIP Co de Phone Number [facility] [address] [place] [address], [place] [phone] * HEPATITIS C ANTIBODY (10/07/2022 12:36 PM CDT) Hepatitis C Antibody Non-react [place] Non-reac tive 10/07/2022 2:56 PM CDT [facility] Comment:Hepatitis C Antibody screen indicates no [...] ORDERABLES Fi nal Result Performing Organization Address City/[facility]/ZIP Co de Phone Number [facility] [address] [place] [address], [place] [phone] from Last 3 Months or Most Recently Relevant to Health Maintenance Insurance [employer] [facility] MEDICARE ADV Care Teams 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
--- OUTSIDE RECORDS SUMMARY | 2025-01-16 15:08 | XMS_ITS | Clinical Summary ---
Author Organization [facility] Address [address] [place] [address] Care Team Providers Care Risk Management Professional Name Role Phone Mercedes Clinton Primary Care [...] Diagnosed Date Atherosclerotic heart diseas e of [place] coronary artery without angina pectoris 04/15/2023 04/15/2023 [...] Sigmoidoscopy 2022 Influenza Vaccine (#1) 2025 Insurance [facility] ([id number]) Care Teams Risk Management Professional Relationship Specialty Start Date End Date Mercedes Clinton [address] [place] [address] PCP - General Family Medicine 02/16/23
[2025-01-16 16:02] LABS: Lithium 2.5 mmol/L (0.6-1.2)
--- NOTE | 2025-01-16 16:29 | ADMGEN ---
This patient, Tino Garnica, was admitted to [facility] Surg Room 333-01. Patient/family oriented to hospital policies and general routines including ID bracelet, bed and alarms, visiting hours, pain management, procedures, bathroom and other care routines, personal items, smoking policy, room service/diet, and visiting hours. Information on how to activate the Rapid Response Team has been discussed. Patient/Family are encouraged to report perceived risks to care and to ask questions if they do not understand what they are told or what they should do. Pt received to floor with erythema to bilat ankles, critical lithium level of 2.5 (Ashia Richmond made aware), stool noted under fingernails and all over bilat feet. Med list from facility states 2/2 pages, but most medications that were previously taken are not listed at this time. Call made to Allen Sanchez as Kelley are considering emergent dialysis tunnel cath placement for critical lithium
--- NOTE | 2025-01-16 17:04 | PM.CNGS ---
Assessment and Plan Assessment and plan (1) [place] toxicity: Code(s): T56.891A - Toxic effect of other metals, accidental (unintentional), initial encounter Status: Acute Assessment and Plan: Patient has evidence of lithium toxicity and will be needing dialysis tonight. Will place temporary Shimon dialysis catheter at bedside. Catheter will be managed by dialysis nurse until it was able to be removed. (2) AMS (altered mental status): Qualifiers: Altered mental status type: unspecified Qualified Code(s): R41.82 - Altered mental status, unspecified Code(s): R41.82 - Altered mental status, unspecified Status: Acute (3) Schizophrenia: Code(s): F20.9 - Schizophrenia, unspecified Status: Acute (4) GRUPO (acute kidney injury): Code(s): N17.9 - Acute kidney failure, unspecified Status: Acute History of Present Illness Consult details Consult date: 01/16/25 Reason for consult: other (need for dialysis access) Requesting physician: Ashia Richmond APRN Narrative: This is a 49-year-old man who I am asked to see for placement of an emergent temporary dialysis catheter. He was admitted through the ED today with altered mental status. He is a resident at [facility]. His lithium level was noted to be very high. He is in need of emergent hemodialysis to bring his lithium levels down. The patient appears slightly somnolent but is awake and breathing on his own. He is able to answer questions. He has a history of schizophrenia and thorough history is somewhat difficult to obtain. Review of Systems Review of Systems: All systems reviewed & are unremarkable except as noted in HPI and below Constitutional: Constitutional: Denies chills and Denies fever(s) Cardiovascular: Cardiovascular: Denies chest pain and Denies dyspnea Respiratory: Respiratory: Denies dyspnea Gastrointestinal: Gastrointestinal: Reports as per HPI [facility] Past Medical History Medical History (Updated 01/16/25 @ 17:08 by Max Jacinto DO) Self-care deficit Hyperkalemia Schizophrenia Posttraumatic stress disorder Depression with anxiety Type 2 diabetes mellitus Obstructive sleep apnea on CPAP Hyperlipidemia Hypertension Tobacco dependence Asthma Chronic obstructive pulmonary disease Surgical History Surgical History History of appendectomy Social History Social History Social History: Surrogate medical decision maker: Vicky Mancia, sister ([phone]). Code status: Full code. Smoking packs per day: 2 Smoking cigarettes per day: 40.0 Smoking status: Current every day smoker Tobacco type: cigarettes Alcohol intake: unknown Substance use: unknown Spiritual care concerns: No Meds Home Medications and Allergies Home Medications ?Medication ?Instructions ?Recorded ?Confirmed ?Type albuterol sulfate 90 mcg/actuation 1 puff inhalation Q4H PRN 07/26/24 07/26/24 History aerosol inhaler shortness of breath or wheezing amlodipine 5 mg tablet 5 mg PO DAILY 07/26/24 07/26/24 History aripiprazole 10 mg tablet 5 mg PO DAILY 07/26/24 07/26/24 History aspirin 81 mg capsule 81 mg PO DAILY 07/26/24 07/26/24 History benztropine 1 mg tablet 1 mg PO HS 07/26/24 07/26/24 History desipramine 150 mg tablet 150 mg PO HS 07/26/24 07/26/24 History diclofenac sodium 1 % topical gel See Rx Instructions topical 07/26/24 07/26/24 History .COMPLEX fluticasone 250 mcg-salmeterol 50 1 inh inhalation Q12H 07/26/24 07/26/24 History mcg/dose blistr powdr for inhalation folic acid 1 mg tablet 1 mg PO DAILY 07/26/24 07/26/24 History gabapentin 300 mg capsule 300 mg PO Q12H 07/26/24 07/26/24 History lithium carbonate 300 mg capsule 300 mg PO BID 07/26/24 07/26/24 History losartan 50 mg-hydrochlorothiazide 1 tablet PO DAILY 07/26/24 07/26/24 History 12.5 mg tablet metformin 1,000 mg tablet 1,000 mg PO BID 07/26/24 07/26/24 History omega 4-iti-clu-fish oil 1,000 mg 1 cap PO HS 07/26/24 07/26/24 History (120 mg-180 mg) capsule (Fish Oil) oxybutynin chloride 15 mg 15 mg PO DAILY 07/26/24 07/26/24 History tablet,extended release 24 hr sennosides 8.6 mg-docusate sodium 2 tab-cap PO HS 07/26/24 07/26/24 History 50 mg tablet (Senna-Time S) simvastatin 40 mg tablet 40 mg PO QPM 07/26/24 07/26/24 History sitagliptin phosphate 50 mg tablet 50 mg PO DAILY 07/26/24 07/26/24 History (Januvia) venlafaxine 150 mg 300 mg PO DAILY 07/26/24 07/26/24 History capsule,extended release 24 hr paliperidone palm (3 month) 819 819 mg IM .every 3 months 07/28/24 07/28/24 History mg/2.63 mL intramuscular syringe (Invega Trinza) albuterol sulfate 90 mcg/actuation 1 inh inhalation QID #6.7 grams 07/31/24 Rx aerosol inhaler (Ventolin HFA) methylprednisolone 4 mg tablets in See Rx Instructions PO .COMPLEX 07/31/24 Rx a dose pack (Medrol (Jamie)) #21 ea nicotine 21 mg/24 hr daily 1 patch transdermal DAILY #7 ea 07/31/24 Rx transdermal patch (Nicoderm CQ) polyethylene glycol 3350 17 gram 17 g PO QAM #30 ea 07/31/24 Rx oral powder packet (Miralax) Allergies Allergy/AdvReac Type Severity Reaction Status Date / Time No Known Allergies Allergy Mild Verified 01/12/25 13:59 Vital Signs Vital Signs - 24 hr 01/16/25 10:16 01/16/25 10:21 01/16/25 11:06 Temperature 98.3 F Pulse Rate 70 73 Respiratory Rate 16 20 Blood Pressure 110/61 107/66 Pulse Oximetry 96 100 Oxygen Delivery Room Air Room Air 01/16/25 12:25 01/16/25 13:17 01/16/25 13:43 Temperature Pulse Rate 73 80 74 Respiratory Rate 14 17 17 Blood Pressure 126/86 108/66 112/65 Pulse Oximetry 97 96 98 Oxygen Delivery 01/16/25 14:31 01/16/25 15:34 Temperature 98.4 F Pulse Rate 67 74 Respiratory Rate 15 16 Blood Pressure 108/73 145/78 H Pulse Oximetry 96 96 Oxygen Delivery Exam Const: General: cooperative, no acute distress and average body habitus Nutritional Appearance: average body habitus HENMT: Head: normal to inspection Ears: hearing grossly normal bilaterally Mouth: Yes Normal oral and palatal mucosa present Eyes: General: appearance normal, both eyes and all related structures Sclera: sclerae normal EOM: EOMs intact bilaterally Neck: Neck: normal visual inspection and full ROM Resp: Effort & Inspection: normal respiratory effort and able to speak in complete sentences Cardio: Jugular venous distension: no JVD Rate: regular rate Rhythm: regular rhythm Heart sounds: S1 normal heart sound present and S2 normal heart sound present Back/Spine/Pelvis: Cervical Spine: normal cervical lordosis and cervical ROM normal Skin: General skin exam: normal color and no rashes or lesions noted Neuro: General: moves all extremities, no focal motor deficits and CN's II-XI intact bilaterally Extrem: General: normal to inspection, full ROM and no clubbing, cyanosis or edema Psych: Speech and movement: Normal speech and movement present Affect: normal affect Attitude: cooperative Thought process: Normal thought process present Results Labs 01/16/25 10:45 01/16/25 10:45 Labs: Abnormal lab results 01/16/25 01/16/25 01/16/25 Range/Units 10:45 11:15 15:24 WBC 11.7 H (4.5-10.0) K/mm3 RBC 3.48 L (4.6-6.20) M/mm3 Hgb 10.3 L (14.0-18.0) g/dL Hct 31.0 L (42.0-52.0) % MPV 11.6 H (7.4-10.4) fl Immature Gran % (Auto) 0.6 H (0-0.5) % Neut % (Auto) 84.9 H (45.5-73.1) % Lymph % (Auto) 7.3 L (18.3-44.2) % Lymph # (Auto) 0.85 L (0.9-3.2) K/mm3 Abs Immat Gran (auto) 0.07 H (0.00-0.031) K/mm3 Absolute Neuts (auto) 10.0 H (1.3-6.7) K/mm3 Sodium 134 L (137-145) mmol/L BUN 48 H D (9-20) mg/dL Creatinine 3.63 H (0.7-1.3) mg/dL Estimated GFR 18 L (59 - ) Calcium 10.3 H (8.4-10.2) mg/dL Urine Appearance Cloudy H (Clear) Urine Ketones Trace H (Negative) mg/dL Leukocyte Esterase Rfl Trace H (Negative) ELAINA/UL [place] 2.5 H* (0.6-1.2) mmol/L Diabetes panel 01/16/25 Range/Units 10:45 Sodium 134 L (137-145) mmol/L Potassium 4.8 (3.4-5.0) mmol/L Chloride 100 (98-107) mmol/L Carbon Dioxide 25 (22-30) mmol/L BUN 48 H D (9-20) mg/dL Creatinine 3.63 H (0.7-1.3) mg/dL Glucose 73 (65-110) mg/dL Calcium 10.3 H (8.4-10.2) mg/dL AST 25 (17-59) U/L ALT 17 (6-50) U/L Alkaline Phosphatase 111 (38-126) U/L Total Protein 7.6 (6.3-8.2) g/dL Albumin 4.3 (3.5-5.1) g/dL Calcium panel 01/16/25 Range/Units 10:45 Calcium 10.3 H (8.4-10.2) mg/dL Albumin 4.3 (3.5-5.1) g/dL Pituitary panel 01/16/25 Range/Units 10:45 Sodium 134 L (137-145) mmol/L Potassium 4.8 (3.4-5.0) mmol/L Chloride 100 (98-107) mmol/L Carbon Dioxide 25 (22-30) mmol/L BUN 48 H D (9-20) mg/dL Creatinine 3.63 H (0.7-1.3) mg/dL Glucose 73 (65-110) mg/dL Calcium 10.3 H (8.4-10.2) mg/dL Adrenal panel 01/16/25 Range/Units 10:45 Sodium 134 L (137-145) mmol/L Potassium 4.8 (3.4-5.0) mmol/L Chloride 100 (98-107) mmol/L Carbon Dioxide 25 (22-30) mmol/L BUN 48 H D (9-20) mg/dL Creatinine 3.63 H (0.7-1.3) mg/dL Glucose 73 (65-110) mg/dL Calcium 10.3 H (8.4-10.2) mg/dL Total Bilirubin 0.7 (0.2-1.3) mg/dL AST 25 (17-59) U/L ALT 17 (6-50) U/L Alkaline Phosphatase 111 (38-126) U/L Total Protein 7.6 (6.3-8.2) g/dL Albumin 4.3 (3.5-5.1) g/dL All other labs normal. Imaging Additional studies: ITS Impressions Head CT 01/16/25 11:27 IMPRESSION: 1. No acute intra-abdominal/pelvic process.
[2025-01-16 17:43] LABS: Cannabinoid Screen Urine Negative (Negative)
--- NOTE | 2025-01-16 17:51 | P.OP_ITS ---
Procedure Note - Detailed Date of Procedure 01/16/25 Pre-op Diagnosis [place] toxicity, altered mental status, acute kidney injury Post-op Diagnosis Same Procedure Performed Right IJ Shimon dialysis catheter placement using ultrasound guidance Surgeon Max Jacinto, DO Anesthesia Local (1% Lidocaine) Indications [place] toxicity, in need of hemodialysis Findings SonoSite ultrasound was used to identify the right internal jugular vein. This was identified as a compressible vessel just lateral to the pulsatile right carotid artery. The 18 gauge introducer needle was advanced under ultrasound guidance directly into the lumen of the right internal jugular vein. Dark nonpulsatile blood was aspirated. The 0.035 in guidewire advanced smoothly. A 12 [place] triple-lumen dialysis catheter was placed. X-ray is pending to confirm placement. Description of Procedure Procedure, risks, benefits, and alternatives were discussed with the patient. Written consent was obtained and placed in chart prior to procedure. Patient was placed supine in hospital bed and placed in slight Trendelenburg position. Time-out was done to confirm patient and procedure. The right neck and chest area was prepped and draped in sterile fashion using chlorhexidine prep. SonoSite ultrasound was used to identify the right internal jugular vein. 1% lidocaine was infiltrated directly over this area. An 18 gauge introducer needle was advanced under ultrasound guidance directly into the right internal jugular vein. Dark nonpulsatile blood was aspirated. A 0.035 in guidewire was then advanced through the needle. The guidewire advanced smoothly. The needle was then withdrawn leaving the guidewire in place. A small babatunde incision was made at the insertion site using an 11 blade scalpel. The blue dilators were th en advanced over the guidewire to dilate the vessel. The 12 Australian triple lumen 16 cm dialysis catheter was then advanced over the guidewire until it was in place. The guidewire was removed. All 3 lumens were then aspirated and flushed with sterile saline. All 3 lumens function with ease. Caps were placed over the lumens. Glue was placed at the insertion site and the catheter was secured in place using 3 0 nylon simple interrupted sutures. A Tegaderm dressing was then applied over top. The patient was then sat up in bed and chest x-ray was ordered to confirm placement. Implants 12 Australian triple-lumen 16 cm dialysis catheter Estimated Blood Loss 5 Urine Output 300 Complications No immediate complications Condition Critical Disposition ICU [facility] Billing Surgery - Charge Forward: Surgery Billing
--- NOTE | 2025-01-16 18:04 | PC.NURSE ---
Pt sister, Vicky Mancia phone [phone], is his next of kin. Pt mother, previous next of kin/POA, is . When critical lithium level called, this RN called to Laura requesting current medication list, as one sent with pt is inaccurate. Laura stated that he did initiate decreasing/stopping some of pt antipsychotics due to pt having frequent falls at facility. Laura able to verify that pt should still be taking lithium 300mg PO BID as of 11/09/24. He also verified that lithium is not one of the meds he wanted decreased/stopped. This RN gave report bedside to Katherine, RELOCATION ASSOCIATE.
[2025-01-16 18:45] LABS: Acetaminophen < 10 ug/mL (10-30)
[2025-01-16 18:51] LABS: Lithium 2.5 mmol/L (0.6-1.2)
[2025-01-16 19:17] LABS: Hepatitis B Surface Antigen Negative (Negative)
--- NOTE | 2025-01-16 19:17 | P.CONNP_ITS ---
Assessment and Plan Assessment and plan (1) [place] toxicity: Code(s): T56.891A - Toxic effect of other metals, accidental (unintentional), initial encounter Status: Resolved Assessment and Plan: * elevated lithium levels noted * presumably precipitated by GRUPO/ARF * given significant decline in renal function, uncertainty of whether renal function will improve with conservative therapy, and altered mental status/encephalopathy, emergent dialysis being done today * given likely lithium rebound effect, likely plan HD tomorrow as well * follow trend of lithium levels (2) GRUPO (acute kidney injury): Code(s): N17.9 - Acute kidney failure, unspecified Status: Acute Assessment and Plan: * as noted by admission labs * creatinine 3.63mg/dL on presentation * etiology not clear -- possibilities include: * prerenal factors * infection * other(?) * check urine studies, CPK, and renal ultrasound * agree with IVFS * however, given #1, emergent HD today * follow trend of repeat labs and UOP (3) Stage 3a chronic kidney disease: Code(s): N18.31 - Chronic kidney disease, stage 3a Status: Chronic Assessment and Plan: * baseline creatinine runs ~ 1.2 - 1.5mg/dl (at least from [facility] records) * presumably due to diabetes and vascular disease * cannot discount lithium playing a role as well (4) Encephalopathy: Code(s): G93.40 - Encephalopathy, unspecified Status: Acute Assessment and Plan: * baseline mentation not clear/known * last ER visit 5 days ago documented Alert and oriented x 3 * Head CT negative * urine drug screen negative * suspect secondary to #1 * follow mentation (5) UTI (urinary tract infection): Code(s): N39.0 - Urinary tract infection, site not specified Status: Acute Assessment and Plan: * suspected based on admission UA * follow culture data * empiric antibiotic therapy (6) Anemia: Code(s): D64.9 - Anemia, unspecified Status: Acute Assessment and Plan: * as noted on admission * partly related to GRUPO * follow trend of H/H (7) Schizophrenia: Code(s): F20.9 - Schizophrenia, unspecified Status: Acute Assessment and Plan: * continue Abilify, Cogentin, and venlafaxine XR * hold lithium given #1 (8) Type 2 diabetes mellitus: Code(s): E11.9 - Type 2 diabetes mellitus without complications Status: Acute Assessment and Plan: * hold metformin * follow accu-cheks * glycemic control per hospitalist Greater than 20 minutes spent reviewing electronic medical records, discussion with Poison Control, and discussion with hospitalist in conjunction with coordinating emergent dialysis this evening given findings of lithium toxicity. I will continue to follow the patient with you while he remains hospitalized and make further recommendations as deemed necessary. Thank you for allowing me to participate in the care of this patient. L History of Present Illness Reason for Consult Consult date: 01/16/25 Reason for consult: acute renal failure and Other (lithium toxicity) Chief Complaint Chief complaint: grupo,ams History of Present Illness Narrative: A great majority of the history that I obtained is from review of the electronic medical record as well as discussion with the physician/nurses involved in the patient's care at is difficult to get a full and complete history from the patient due to his acute confusion/ encephalopathy at this time. The patient is a 49-year-old male with a past medical history as outlined below who presented to [facility] Emergency Room due to altered mental status. Patient was apparently seen about 5 days ago in the emergency room where he was diagnosed with a UTI in the context of dehydration. He was given IV fluids and antibiotics and subsequently discharged as he clinically felt better. Returned back to the ER today due to his change in mental status. Unfortunately, his difficult to ascertain over what period of time and how long his mentation has been altered although by report in the ER notes 5 days ago, his mental status was at baseline if not stable. Workup and evaluation emergency room demonstrated the patient to be hemodynamically stable and afebrile. Routine blood work demonstrated white blood cell count 11.7, hemoglobin 10.3, sodium 134, BUN 48, creatinine 3.63, calcium 10.3 and a urinalysis concerning for possible infection. CT scan of the head demonstrated no acute findings. Given his abnormal renal function, he was initiated on IV fluids and antibiotics for his presumed urinary tract infection after appropriate cultures were obtained. He was subsequently admitted to the hospital for further evaluation therapy. Following admission to the floor, review his medications noted that the patient was on lithium. A subsequent lithium level was done which was found to be quite elevated at 2.5 poison Control was contacted with recommendation for Nephrology consultation for possible dialysis. Renal consultation was requested due to his acute kidney injury/acute renal failure in the context of his lithium toxicity. From review of the patient's records, it would seem he has some degree of renal insufficiency at baseline with a creatinine that fluctuates anywhere from 1.2-1.5 mg/dL. Presumably, his underlying renal insufficiency is due to his diabetes and vascular disease although I cannot discount the possibility that his chronic lithium use may have also played a role with this issue as well. On his last hospitalization here [facility], he was discharged at his baseline with a creatinine of 1.3 mg/dL. As already mentioned above, on presentation to the emergency room, his creatinine was up to 3.6 mg/dL. He has since been initiated on aggressive IV fluid resuscitation but given the concern that his renal function has significantly declined in the context of an elevated lithium level as well as the fact it is unclear if his renal function will improve relatively soon, the current Cerner his that he will need renal replacement therapy / dialysis for definitive intervention/ treatment for his lithium toxicity. Surgery has already been consulted and a temporary dialysis catheter has been placed the patient is currently receiving dialysis at the time my visit and tolerating it reasonably well (seen on HD at 7:05pm). Review of Systems 2 Review of Systems: As per HPI. [facility] Past Medical History Medical History Self-care deficit Hyperkalemia Schizophrenia Posttraumatic stress disorder Depression with anxiety Type 2 diabetes mellitus Obstructive sleep apnea on CPAP Hyperlipidemia Hypertension Tobacco dependence Asthma Chronic obstructive pulmonary disease Surgical History Surgical History History of appendectomy Social History Social History Social History: Surrogate medical decision maker: Vicky Mancia, sister ([phone]). Code status: Full code. Smoking packs per day: 2 Smoking cigarettes per day: 40.0 Smoking status: Unknown if ever smoked Tobacco type: cigarettes Alcohol intake: unknown Substance use: unknown Spiritual care concerns: No Meds Home Medications and Allergies Home Medications ?Medication ?Instructions ?Recorded ?Confirmed ?Type aripiprazole 10 mg tablet 5 mg PO HS 07/26/24 01/16/25 History aspirin 81 mg capsule 81 mg PO DAILY 07/26/2407/11 History benztropine 1 mg tablet 1 mg PO HS 07/26/24 01/16/25 History diclofenac sodium 1 % topical gel See Rx Instructions topical 07/26/24 01/16/25 History .COMPLEX PRN pain fluticasone 250 mcg-salmeterol 50 1 inh inhalation Q12 H 07/26/24 01/16/25 History mcg/dose blistr powdr for inhalation folic acid 1 mg tablet 1 mg PO DAILY 07/26/2401/16 History lithium carbonate 300 mg capsule 300 mg PO BID 5 01/16/25 History losartan 50 mg-hydrochlorothiazide 1 tablet PO DAILY 0 07/26/24 01/16/25 History 12.5 mg tablet metformin 1,000 mg tablet 1,000 mg PO BID 07/26/2407/11 History omega 4-pkj-ucq-fish oil 1,000 mg 1 cap PO HS 07/26/24 01/16/25 History (120 mg-180 mg) capsule (Fish Oil) sennosides 8.6 mg-docusate sodium 2 tab-cap PO HS PRN constipation 07/26/24 01/16/25 History 50 mg tablet (Senna-Time S) simvastatin 40 mg tablet 40 mg PO HS 07/26/24 5 History sitagliptin phosphate 50 mg tablet 50 mg PO DAILY 07/1501/16/25 History (Januvia) venlafaxine 150 mg 300 mg PO DAILY 07/26/2407/11 History capsule,extended release 24 hr paliperidone palm (3 month) 819 819 mg IM .every 3 mon th07/28/24 01/16/25 History mg/2.63 mL intramuscular syringe (Invega Trinza) albuterol sulfate 90 mcg/actuation 1 inh inhalation QI D PRN shortness 01/16/25 01/16/25 History aerosol inhaler (Ventolin HFA) of breath or wheezing desipramine 150 mg tablet 150 mg PO HS 01/16/25 History nicotine 21 mg/24 hr daily 1 patch transdermal DAILY P RN 01/16/25 01/16/25 History transdermal patch (Nicoderm CQ) withdrawal symptoms polyethylene glycol 3350 17 gram 17 g PO QAM PRN const ipation 01/16/25 01/16/25 History oral powder packet (Miralax) cholecalciferol (vitamin D3) 125 50,000 unit PO MONTHL Y 01/17/25 01/17/25 History mcg (5,000 unit) tablet mecobalamin (vitamin B12) 1,000 1,000 mcg PO DAILY 08/0801/17/25 History mcg chewable tablet Allergies Allergy/AdvReac Type Severity Reaction Status Date / Time No Known Allergies Allergy Mild Verified 01/12/25 13:59 Vital Signs Vital Signs Temp Pulse Resp BP Pulse Ox O2 Del Method 01/16/25 19:15 74 137/79 01/16/25 19:00 78 134/113 H 01/16/25 18:45 75 134/93 H 01/16/25 18:37 78 126/66 01/16/25 18:30 98.4 F 81 21 H 129/78 95 01/16/25 17:58 98.4 F 75 17 134/75 95 01/16/25 17:30 74 15 128/69 93 01/16/25 17:23 73 16 131/76 95 01/16/25 15:34 98.4 F 74 16 145/78 H 96 01/16/25 14:31 67 15 108/73 96 01/16/25 13:43 74 17 112/65 98 01/16/25 13:17 80 17 108/66 96 01/16/25 12:25 73 14 126/86 97 01/16/25 11:06 73 20 107/66 100 01/16/25 10:21 Room Air 01/16/25 10:16 98.3 F 70 16 110/61 96 Room Air Exam 2 Narrative: GENERAL APPEARANCE: well developed well nourished male/female in no acute distress but confused HEENT: normocephalic, atraumatic, normal conjunctiva and sclera, nares patient NECK: no lymphadenopathy, thyromegaly, or JVD MOUTH: normal lips, teeth, and gums CARDIOVASCULAR: RRR, normal S1 and S2, no rub RESPIRATORY: clear to auscultation bilaterally ABDOMEN: soft, nontender, nondistended, positive bowel sounds present EXTREMITIES: no evidence of cyanosis, clubbing, or edema NEUROLOGICAL: awake and alert; no focal deficits noted Results Lab Results 01/20/25 04:47 01/20/25 04:47 Lab results: Most recent lab results Calcium 10.3 mg/dL (8.4-10.2) H 01/16/25 10:45
[2025-01-16 19:34] LABS: Hepatitis B Surface Anti Res Negative
[2025-01-16] MEDS: DEXTROSE 50% 25 GM/50 ML SYRINGE IV PUSH (21:05)
[2025-01-16] MEDS: SIMVASTATIN 20 MG TABLET 40 MG PO (22:22)
[2025-01-16] MEDS: CENTRAL LINE FLUSH 10 ML IV PUSH (22:22)
[2025-01-16 22:40] LABS: Alanine Aminotransferase 16 U/L (6-50); Albumin Level 3.8 g/dL (3.5-5.1); Alkaline Phosphatase 112 U/L (38-126); Anion Gap 6 mmol/L (4-12); Aspartate Amino Transferase 22 U/L (17-59); Bilirubin,Total 0.7 mg/dL (0.2-1.3); Blood Urea Nitrogen 18 mg/dL (9-20); Calcium 9.2 mg/dL (8.4-10.2); Carbon Dioxide 26 mmol/L (22-30); Chloride 104 mmol/L (98-107); Estimated CRCL calculation 69 ml/min; Estimated Glomerular Filt Rate 53; Glucose 113 mg/dL (65-110); Potassium 3.5 mmol/L (3.4-5.0); Sodium 136 mmol/L (137-145); Total Protein 6.8 g/dL (6.3-8.2)
[2025-01-16 22:49] LABS: Lithium 1.1 mmol/L (0.6-1.2)
--- NOTE | 2025-01-16 23:10 | PC.NURSE ---
Spoke with Alexandria at [facility]. Alexandria reviewed patients medications OTP and faxed a medication list.
[2025-01-17] VITALS (32 sets, daily range): BP systolic 99–134; BP diastolic 56–87; PULSE 63–88; RESP 16–21; TEMP 36.5–37; O2SAT 86–100
[2025-01-17] MEDS: DEXTROSE 50% 25 GM/50 ML SYRINGE IV PUSH (01:22)
[2025-01-17] MEDS: BENZTROPINE MESYLATE 1 MG TABLET PO ×2 (01:33→21:29)
--- NOTE | 2025-01-17 02:21 | PC.NURSE ---
2209- Spoke to [place] with poison control. Notified of patients condition. Asked to call back with follow up lithium results. 2253- Notified [place] of lithium levels. Asked to recheck in 4 hours and with AM labs.
[2025-01-17 03:01] LABS: Urea Random Urine 202 MG/DL
[2025-01-17 03:05] LABS: Lithium 1.4 mmol/L (0.6-1.2); Total Protein Urine Random 15 mg/dL; Ur Ttl Prot Creatinine Ratio 0.29 mg/mg (0-0.20)
[2025-01-17 03:39] LABS: Urine Eos QC 2nd Tech Confirmed
[2025-01-17] MEDS: CENTRAL LINE FLUSH 10 ML IV PUSH ×3 (04:56→21:28)
[2025-01-17 05:12] LABS: Hematocrit 27.9 % (42.0-52.0); Hemoglobin 9.3 g/dL (14.0-18.0); Immature Granulocyte Percent A 0.4 % (0-0.5); Lymphocytes Absolute Auto 1.03 K/mm3 (0.9-3.2); Mean Corpuscular HGB Conc 33.3 g/dl (32-36); Mean Corpuscular Hemoglobin 29.8 pg (26-34); Mean Corpuscular Volume 89.4 fl (80-100); Nucleated Red Blood Cells Absolute Auto 0.000 K/mm3 (0.0-0.012); Nucleated Red Blood Cells Perc 0.0 % (0.0-0.2); Platelet Count Result 147 k/mm3 (150-375); Red Blood Count 3.12 M/mm3 (4.6-6.20); White Blood Count 7.8 K/mm3 (4.5-10.0)
[2025-01-17 05:14] LABS: Lithium 1.4 mmol/L (0.6-1.2)
[2025-01-17 05:15] LABS: Alanine Aminotransferase 15 U/L (6-50); Albumin Level 3.6 g/dL (3.5-5.1); Alkaline Phosphatase 104 U/L (38-126); Anion Gap 4 mmol/L (4-12); Aspartate Amino Transferase 21 U/L (17-59); Bilirubin,Total 0.4 mg/dL (0.2-1.3); Blood Urea Nitrogen 18 mg/dL (9-20); Calcium 9.1 mg/dL (8.4-10.2); Carbon Dioxide 27 mmol/L (22-30); Chloride 106 mmol/L (98-107); Estimated CRCL calculation 59 ml/min; Estimated Glomerular Filt Rate 44; Glucose 90 mg/dL (65-110); Magnesium 2.0 mg/dL (1.6-2.3); Potassium 3.9 mmol/L (3.4-5.0); Sodium 137 mmol/L (137-145); Total Protein 6.4 g/dL (6.3-8.2)
--- NOTE | 2025-01-17 05:52 | PC.NURSE ---
This RN received a call from Sanjunaa with [employer] requesting an update on the patients condition. Phone number to Sanjuana Mammotome [phone].
[2025-01-17] MEDS: SODIUM CHLORIDE 0.9% IV 1,000 ML 125 ML IV CONT (05:58)
[2025-01-17] MEDS: ASPIRIN 81 MG CHEWABLE TABLET PO (08:21)
[2025-01-17] MEDS: VENLAFAXINE HCL XR 75 MG CAP.ER.24H 300 MG PO (08:21)
[2025-01-17] MEDS: ENOXAPARIN 40 MG/0.4 ML SYRINGE SUB-Q (08:21)
[2025-01-17] MEDS: LACTATED RINGERS 1,000 ML 125 ML IV CONT ×2 (08:26→16:15)
[2025-01-17 08:39] LABS: Creatine Kinase 57 U/L (55-170)
--- OUTSIDE RECORDS SUMMARY | 2025-01-17 10:19 | XMS_ITS | Clinical Summary ---
Author Organization 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
--- OUTSIDE RECORDS SUMMARY | 2025-01-17 10:19 | XMS_ITS | Clinical Summary ---
Author Organization [facility] Address [address] [place] [address] Care Team Providers Care Diesel Crane Operator Name Role Phone Christopher Sanchez MD Primary Care Provider [phone] Source Comments [facility] [employer],non-owned Affiliates and Associated Physician Practices is amultiple site organization consisting of ambulatory clinics and hospital sitesin [place], [place], [place] and [place]. This disclosure is being madepursuant to the Care Everywhere program and may not contain all information available regarding this patient. 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 Sodium 143 136 - 145 mmol/L 10/07/2022 1:38 PM CDT [facility] Potassium 3.9 3.5 - 4.5 mmol/L 10/07/2022 1:38 PM [facility] Chloride 106 98 - 107 mmol/L 10/07/2022 1:38 PM [facility] CO2 30(H) 22 - 29 mmol/L 10/07/2022 1:38 PM [facility] Glucose 94 70 - 115 mg/dL 10/07/2022 1:38 PM [facility] Calcium 9.9 8.4 - 10.2 mg/dL 10/07/2022 1:38 PM [facility] Protein Total 7.4 6.0 - 8.3 g/dL 10/07/2022 1:38 PM [facility] Albumin 3.7 3.4 - 5.0 g/dL 10/07/2022 1:38 PM [facility] Bilirubin Total 0.3 0.2 - 1.2 mg/dL 10/07/2022 1:38 PM [facility] Alkaline Phosphatase 51 40 - 150 U/L 10/07/2022 1:38 PM [facility] ALT 20 5 - 55 U/L 10/07/2022 1:38 PM [facility] AST 16 5 - 34 U/L 10/07/2022 1:38 PM [facility] Anion Gap 11 8 - 18 10/07/2022 1:38 PM [facility] BUN/Creatinine Ratio 6(L) 7 - 23 10/07/2022 1:38 PM [facility] Osmolality Calculated 294 270 - 300 mOsm/kg 10/07/2022 1:38 PM [facility] Albumin/Globulin Ratio 1.0(L) 1.1 - 2.3 10/07/2022 1:38 PM [facility] eGFR by CKD-EPI 60(L) >=90 mL/min/1.7 3 m2 10/07/2022 1:38 PM [facility] Blood BLOOD SPECIMEN / Unknown Lab Venipuncture / Unknown 10/07/2022 12:36 PM CDT 10/07/2022 1:03 PM T us Reuben Camejo MD LAB - CHEMISTRY ORDERABLES Fi nal Result Performing Organization Address City/[facility]/ZIP Co de Phone Number [facility] [address] [place] [address], [place] [phone] * HEPATITIS C ANTIBODY (10/07/2022 12:36 PM CDT) Hepatitis C Antibody Non-react [place] Non-reac tive 10/07/2022 2:56 PM CDT [facility] Comment:Hepatitis C Antibody screen indicates no [...] ORDERABLES Fi nal Result Performing Organization Address City/[facility]/ZIP Co de Phone Number [facility] [address] [place] [address], [place] [phone] from Last 3 Months or Most Recently Relevant to Health Maintenance Insurance [facility] MEDIC[facility] ADV Care Teams Diesel Crane Operator Relationship Specialty Start Date End Date Christopher Sanchez MD [address] [facility] [place] [address] PCP - General Internal Medicine 10/07/22
--- NOTE | 2025-01-17 11:20 | WPDCNINT ---
Assessment and Plan Assessment and plan (1) [place] toxicity: Code(s): T56.891A - Toxic effect of other metals, accidental (unintentional), initial encounter Status: Acute Assessment and Plan: Patient is on lithium and now with elevated level likely secondary to impaired renal function Poison control and Nephrology were consulted Patient was dialyzed emergently yesterday [place] level 1.4 this morning I have discussed this with Nephrology and will plan to dialyze him again this morning Continue monitor levels Continue IV fluids (2) Schizophrenia: Code(s): F20.9 - Schizophrenia, unspecified Status: Acute Assessment and Plan: Hold lithium Continue Abilify Cogentin and venlafaxine XR (3) Type 2 diabetes mellitus: Code(s): E11.9 - Type 2 diabetes mellitus without complications Status: Acute Assessment and Plan: Sliding scale insulin Hold metformin (4) GRUPO (acute kidney injury): Code(s): N17.9 - Acute kidney failure, unspecified Status: Acute Assessment and Plan: Presented with elevated creatinine. On review of chart patient appears to have chronic kidney disease Presented with creatinine of 3.63. It is improving with IV fluids Bradley catheter for accurate I&Os Nephrology following Check renal ultrasound Patient currently getting dialyzed for elevated lithium levels (5) Encephalopathy: Code(s): G93.40 - Encephalopathy, unspecified Status: Acute Assessment and Plan: Baseline unknown. Patient appears encephalopathy. Head CT was negative. Likely toxic metabolic encephalopathy UDS was negative Avoid sedatives (6) UTI (urinary tract infection): Code(s): N39.0 - Urinary tract infection, site not specified Status: Acute Assessment and Plan: IV Rocephin Blood and urine cultures Plan DVT prophylaxis -Lovenox Nutrition -renal diet Code Status - Full Code Total Critical Care Time - 32 minutes Due to a high probability of clinically significant, life threatening deterioration, the patient required my highest level of preparedness to intervene emergently and I personally spent this critical care time directly and personally managing the patient. This critical care time included obtaining a history; examining the patient; pulse oximetry; ordering and review of studies; arranging urgent treatment with development of a management plan; evaluation of patient's response to treatment; frequent reassessment; and discussions with other providers. It was exclusive of separately billable procedures and treating other patients and teaching time. 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 Patient was seen in the ER few days ago and was diagnosed with UTI dehydration and was discharged back to correction after treatment. In ER patient was found to be having mild elevated WBC count elevated creatinine and slightly abnormal UA. He also had lithium level 2.5. Poison Control was consulted and Nephrology were consulted decision was made to dialyze patient emergently considering acute kidney injury and elevated lithium level. A temporary dialysis catheter was placed and patient was emergently dialyzed yesterday. Patient himself was encephalopathy ache and confused and was unable to provide any meaningful history. This morning when I saw evaluate the patient he is awake alert but again not oriented. He does not a humphreys in the hospital. He denies any specific complaints. On answering yes or no questions he denied chest abdominal pain, nausea vomiting shortness of breath fever cough headache. He only knows his name and does not know where he is, current year or president. History is not reliable Review of Systems Review of Systems: ROS unobtainable: Yes unobtainable due to medical condition and unobtainable due to mental status PMFSH Past Medical History Medical History Self-care deficit Hyperkalemia Schizophrenia Posttraumatic stress disorder Depression with anxiety Type 2 diabetes mellitus Obstructive sleep apnea on CPAP Hyperlipidemia Hypertension Tobacco dependence Asthma Chronic obstructive pulmonary disease Surgical History Surgical History History of appendectomy Social History Social History Social History: Surrogate medical decision maker: Vicky Mancia, sister ([phone]). Code status: Full code. Smoking packs per day: 2 Smoking cigarettes per day: 40.0 Smoking status: Unknown if ever smoked Tobacco type: cigarettes Alcohol intake: unknown Substance use: unknown Spiritual care concerns: No Meds Home Medications and Allergies Home Medications ?Medication ?Instructions ?Recorded ?Confirmed ?Type aripiprazole 10 mg tablet 5 mg PO HS 07/26/24 01/16/25 History aspirin 81 mg capsule 81 mg PO DAILY 07/26/24 01/16/25 History benztropine 1 mg tablet 1 mg PO HS 07/26/24 01/16/25 History diclofenac sodium 1 % topical gel See Rx Instructions topical 07/26/24 01/16/25 History .COMPLEX PRN pain fluticasone 250 mcg-salmeterol 50 1 inh inhalation Q12H 07/26/24 01/16/25 History mcg/dose blistr powdr for inhalation folic acid 1 mg tablet 1 mg PO DAILY 07/26/24 01/16/25 History lithium carbonate 300 mg capsule 300 mg PO BID 07/26/24 01/16/25 History losartan 50 mg-hydrochlorothiazide 1 tablet PO DAILY 07/26/24 01/16/25 History 12.5 mg tablet metformin 1,000 mg tablet 1,000 mg PO BID 07/26/24 01/16/25 History omega 2-yrc-gxd-fish oil 1,000 mg 1 cap PO HS 07/26/24 01/16/25 History (120 mg-180 mg) capsule (Fish Oil) sennosides 8.6 mg-docusate sodium 2 tab-cap PO HS PRN constipation 07/26/24 01/16/25 History 50 mg tablet (Senna-Time S) simvastatin 40 mg tablet 40 mg PO HS 07/26/24 01/16/25 History sitagliptin phosphate 50 mg tablet 50 mg PO DAILY 07/26/24 01/16/25 History (Januvia) venlafaxine 150 mg 300 mg PO DAILY 07/26/24 01/16/25 History capsule,extended release 24 hr paliperidone palm (3 month) 819 819 mg IM .every 3 months 07/28/24 01/16/25 History mg/2.63 mL intramuscular syringe (Invega Trinza) albuterol sulfate 90 mcg/actuation 1 inh inhalation QID PRN shortness 01/16/25 01/16/25 History aerosol inhaler (Ventolin HFA) of breath or wheezing desipramine 150 mg tablet 150 mg PO HS 01/16/25 01/16/25 History nicotine 21 mg/24 hr daily 1 patch transdermal DAILY PRN 01/16/25 01/16/25 History transdermal patch (Nicoderm CQ) withdrawal symptoms polyethylene glycol 3350 17 gram 17 g PO QAM PRN constipation 01/16/25 01/16/25 History oral powder packet (Miralax) cholecalciferol (vitamin D3) 125 50,000 unit PO MONTHLY 01/17/25 01/17/25 History mcg (5,000 unit) tablet mecobalamin (vitamin B12) 1,000 1,000 mcg PO DAILY 01/17/25 01/17/25 History mcg chewable tablet Allergies Allergy/AdvReac Type Severity Reaction Status Date / Time No Known Allergies Allergy Mild Verified 01/12/25 13:59 Vital Signs Vital Signs - 24 hr 01/16/25 12:25 01/16/25 13:17 01/16/25 13:43 Temperature Pulse Rate 73 80 74 Respiratory Rate 14 17 17 Blood Pressure 126/86 108/66 112/65 Pulse Oximetry 97 96 98 Oxygen Delivery Oxygen Flow Rate 01/16/25 14:31 01/16/25 15:34 01/16/25 17:23 Temperature 36.9 C Pulse Rate 67 74 73 Respiratory Rate 15 16 16 Blood Pressure 108/73 145/78 H 131/76 Pulse Oximetry 96 96 95 Oxygen Delivery Oxygen Flow Rate 01/16/25 17:30 01/16/25 17:58 01/16/25 18:30 Temperature 36.9 C 36.9 C Pulse Rate 74 75 81 Respiratory Rate 15 17 21 H Blood Pressure 128/69 134/75 129/78 Pulse Oximetry 93 95 95 Oxygen Delivery Oxygen Flow Rate 01/16/25 18:37 01/16/25 18:45 01/16/25 19:00 Temperature Pulse Rate 78 75 78 Respiratory Rate Blood Pressure 126/66 134/93 H 134/113 H Pulse Oximetry Oxygen Delivery Oxygen Flow Rate 01/16/25 19:15 01/16/25 19:30 01/16/25 19:45 Temperature Pulse Rate 74 80 80 Respiratory Rate Blood Pressure 137/79 117/78 122/62 Pulse Oximetry Oxygen Delivery Oxygen Flow Rate 01/16/25 20:00 01/16/25 20:00 01/16/25 20:00 Temperature Pulse Rate 78 78 Respiratory Rate Blood Pressure 123/67 Pulse Oximetry Oxygen Delivery Room Air Oxygen Flow Rate 01/16/25 20:00 01/16/25 20:15 01/16/25 20:30 Temperature 36.8 C Pulse Rate 77 81 79 Respiratory Rate 18 Blood Pressure 123/67 114/68 113/68 Pulse Oximetry 95 Oxygen Delivery Oxygen Flow Rate 01/16/25 20:45 01/16/25 21:00 01/16/25 21:15 Temperature Pulse Rate 77 84 83 Respiratory Rate Blood Pressure 110/71 128/66 141/76 H Pulse Oximetry Oxygen Delivery Oxygen Flow Rate 01/16/25 21:30 01/16/25 21:37 01/16/25 21:45 Temperature 36.8 C Pulse Rate 83 78 79 Respiratory Rate 17 Blood Pressure 130/74 134/89 139/68 Pulse Oximetry 95 Oxygen Delivery Oxygen Flow Rate 01/16/25 22:00 01/16/25 22:00 01/17/25 00:00 Temperature Pulse Rate 71 82 Respiratory Rate 17 Blood Pressure 134/78 Pulse Oximetry 94 86 L Oxygen Delivery Room Air Oxygen Flow Rate 01/17/25 00:00 01/17/25 00:00 01/17/25 00:02 Temperature 36.6 C Pulse Rate 68 63 Respiratory Rate 19 Blood Pressure 134/66 Pulse Oximetry 95 90 Oxygen Delivery Nasal Cannula Oxygen Flow Rate 3 01/17/25 02:00 01/17/25 02:00 01/17/25 04:00 Temperature Pulse Rate 77 71 Respiratory Rate 18 Blood Pressure 101/61 Pulse Oximetry 96 94 Oxygen Delivery Nasal Cannula Oxygen Flow Rate 3 01/17/25 04:00 01/17/25 04:00 01/17/25 06:00 Temperature 36.7 C Pulse Rate 67 68 74 Respiratory Rate 21 H Blood Pressure 99/57 L Pulse Oximetry 95 Oxygen Delivery Oxygen Flow Rate 01/17/25 06:00 01/17/25 08:00 01/17/25 08:00 Temperature 36.8 C Pulse Rate 74 83 Respiratory Rate 19 19 Blood Pressure 107/56 L 117/76 Pulse Oximetry 90 97 86 L Oxygen Delivery Nasal Cannula Oxygen Flow Rate 2 01/17/25 08:00 01/17/25 08:54 01/17/25 09:00 Temperature Pulse Rate 79 Respiratory Rate Blood Pressure Pulse Oximetry 99 Oxygen Delivery Room Air Oxygen Flow Rate 01/17/25 10:00 01/17/25 10:00 01/17/25 10:08 Temperature 36.8 C 36.8 C Pulse Rate 78 78 76 Respiratory Rate 19 16 Blood Pressure 120/74 115/76 Pulse Oximetry 100 100 Oxygen Delivery Oxygen Flow Rate 01/17/25 10:17 01/17/25 10:30 01/17/25 10:45 Temperature Pulse Rate 74 75 74 Respiratory Rate Blood Pressure 121/75 123/77 124/75 Pulse Oximetry Oxygen Delivery Oxygen Flow Rate 01/17/25 11:00 01/17/25 11:15 Temperature Pulse Rate 74 75 Respiratory Rate Blood Pressure 122/74 116/75 Pulse Oximetry Oxygen Delivery Oxygen Flow Rate Exam Narrative: General: Pt is alert confused and in NAD Lungs/Chest: Trachea central Clear BS B/L, No crackles or wheezing. Cardiac: RRR. Normal S1 S2. No murmurs Circulation: Pedal pulses are intact and symmetrical. Abdomen: Normal bowel sounds.. Soft. NT. ND. Extremities: No clubbing, cyanosis or edema. Warm : Bradley in place Neurologic: Follows commands. Moves all 4 extremities PERRL fine tremor scenes in the hands AO x1 Skin: No Rash Results Labs 01/17/25 04:53 01/17/25 04:53 Labs: Impressions Head CT 01/16/25 11:27 IMPRESSION: 1. No acute intra-abdominal/pelvic process. Chest X-Ray 01/16/25 17:56 IMPRESSION: 1: NO ACUTE CARDIOPULMONARY DISEASE. Short CBC 01/16/25 01/17/25 Range/Units 10:45 04:53 WBC 11.7 H 7.8 (4.5-10.0) K/mm3 Hgb 10.3 L 9.3 L (14.0-18.0) g/dL Hct 31.0 L 27.9 L (42.0-52.0) % Plt Count 181 147 L (150-375) k/mm3 BMP 01/16/25 01/16/25 01/17/25 10:45 22:21 04:53 Sodium 134 L 136 L 137 Potassium 4.8 3.5 3.9 Chloride 100 104 106 Carbon Dioxide 25 26 27 BUN 48 H D 18 D 18 Creatinine 3.63 H 1.41 H 1.66 H Glucose 73 113 H 90 Calcium 10.3 H 9.2 9.1 Cardiac Enzymes 01/17/25 Range/Units 08:08 Total Creatine Kinase 57 (55-170) U/L Liver Function 01/16/25 01/16/25 01/17/25 Range/Units 10:45 22:21 04:53 Total Bilirubin 0.7 0.7 0.4 (0.2-1.3) mg/dL AST 25 22 21 (17-59) U/L ALT 17 16 15 (6-50) U/L Alkaline Phosphatase 111 112 104 (38-126) U/L Albumin 4.3 3.8 3.6 (3.5-5.1) g/dL Urine 01/16/25 Range/Units 11:15 Urine Color Yellow (Yellow) Urine Appearance Cloudy H (Clear) Urine pH 5.5 (5.0-9.0) Ur Specific [place] 1.012 (1.001-1.035) Urine Protein Negative (Negative) mg/dL Urine Glucose (UA) Negative (Negative) mg/dL Quality VTE Prophylaxis VTE prophylaxis: pharmacologic ordered Hospitalist MIPS Advance Care Plan I have confirmed that the patient's Advanced Care Plan is present, code status is documented, or surrogate decision maker is listed in patient medical record.: Yes Medication Reconciliation I have utilized all available resources to obtain, update and review the patients current medications (includes all prescriptions, OTC, herbals, cannabis, and nutritional supplements).: Yes
--- NOTE | 2025-01-17 11:40 | P.PNNP_ITS ---
Progress Note: A&P Assessment and Plan (1) [place] toxicity: Code(s): T56.891A - Toxic effect of other metals, accidental (unintentional), initial encounter Status: Resolved Assessment and Plan: * elevated lithium levels noted on admission * presumably precipitated by GRUPO/ARF * given significant decline in renal function, uncertainty of whether renal function will improve with conservative therapy, and altered mental status/encephalopathy, emergent dialysis being done yesterday * HD today (lithium level better but still slightly elevated) * follow trend of lithium levels (2) GRUPO (acute kidney injury): Code(s): N17.9 - Acute kidney failure, unspecified Status: Acute Assessment and Plan: * as noted by admission labs * creatinine 3.63mg/dL on presentation * etiology not clear -- possibilities include: * prerenal factors * infection * other(?) * evaluation to date noted: * renal ultrasound pending * urine electrolytes non-prerenal * rare urine eosinophils (no peripheral eosinophilia or rash) * CPK normal * mild proteinuria * UA noted -- infection being ruled out * continue with IVFs for now * HD today and yesterday * follow trend of repeat labs and UOP (3) Stage 3a chronic kidney disease: Code(s): N18.31 - Chronic kidney disease, stage 3a Status: Chronic Assessment and Plan: * baseline creatinine runs ~ 1.2 - 1.5mg/dl (at least from [facility] records) * presumably due to diabetes and vascular disease * cannot discount lithium playing a role as well (4) Encephalopathy: Code(s): G93.40 - Encephalopathy, unspecified Status: Acute Assessment and Plan: * baseline mentation not clear/known * last ER visit 5 days ago documented Alert and oriented x 3 * Head CT negative * urine drug screen negative * suspect partly secondary to #1 * follow mentation (5) UTI (urinary tract infection): Code(s): N39.0 - Urinary tract infection, site not specified Status: Acute Assessment and Plan: * suspected based on admission UA * follow culture data * empiric antibiotic therapy (6) Anemia: Code(s): D64.9 - Anemia, unspecified Status: Acute Assessment and Plan: * as noted on admission * partly related to GRUPO * follow trend of H/H (7) Schizophrenia: Code(s): F20.9 - Schizophrenia, unspecified Status: Acute Assessment and Plan: * continue Abilify, Cogentin, and venlafaxine XR * hold lithium given #1 (8) Type 2 diabetes mellitus: Code(s): E11.9 - Type 2 diabetes mellitus without complications Status: Acute Assessment and Plan: * hold metformin * follow accu-cheks * glycemic control per hospitalist Will continue to follow. L Subjective Date/time seen: 01/17/25 11:40 Interval history: Follow-up for acute kidney injury/acute renal failure on chronic kidney disease and lithium toxicity. Tolerated dialysis treatment yesterday evening and tolerating dialysis treatment at the time of my visit (seen on HD at 11:30am); good urine output noted with IVF resuscitation; mentation seems a bit better in that he is more responsive to questions but still not fully oriented; no apparent distress noted when seen; states that he wants to go home. Exam 2 Narrative: General: WD/WN male in NAD; remains somewhat confused Heart: normal S1 and S2; no rub Lungs: clear to auscultation Abdomen: soft, nontender, nondistended, positive bowel sounds Extremities: no cyanosis or clubbing; no edema Skin: warm and dry Objective Data Vital Signs Vital Signs: Vital Signs Temp Pulse Resp BP Pulse Ox O2 Del Method O2 Flow Rate 01/17/25 11:30 75 118/76 01/17/25 11:15 75 116/75 01/17/25 11:00 74 122/74 01/17/25 10:45 74 124/75 01/17/25 10:30 75 123/77 01/17/25 10:17 74 121/75 01/17/25 10:08 98.2 F 76 16 115/76 100 01/17/25 10:00 98.3 F 78 19 120/74 100 01/17/25 10:00 78 01/17/25 09:00 99 01/17/25 08:54 Room Air 01/17/25 08:00 79 01/17/25 08:00 86 L Nasal Cannula 2 01/17/25 08:00 98.2 F 83 19 117/76 97 01/17/25 06:00 74 19 107/56 L 90 01/17/25 06:00 74 01/17/25 04:00 68 01/17/25 04:00 98.1 F 67 21 H 99/57 L 95 01/17/25 04:00 94 Nasal Cannula 3 01/17/25 02:00 71 18 101/61 96 01/17/25 02:00 77 01/17/25 00:02 90 Nasal Cannula 3 01/17/25 00:00 63 01/17/25 00:00 98 F 68 19 134/66 95 01/17/25 00:00 86 L Room Air 01/16/25 22:00 82 17 134/78 94 01/16/25 22:00 71 01/16/25 21:45 98.3 F 79 17 139/68 95 01/16/25 21:37 78 134/89 01/16/25 21:30 83 130/74 01/16/25 21:15 83 141/76 H 01/16/25 21:00 84 128/66 01/16/25 20:45 77 110/71 01/16/25 20:30 79 113/68 01/16/25 20:15 81 114/68 01/16/25 20:00 98.3 F 77 18 123/67 95 01/16/25 20:00 78 01/16/25 20:00 Room Air 01/16/25 20:00 78 123/67 01/16/25 19:45 80 122/62 01/16/25 19:30 80 117/78 01/16/25 19:15 74 137/79 01/16/25 19:00 78 134/113 H 01/16/25 18:45 75 134/93 H 01/16/25 18:37 78 126/66 01/16/25 18:30 98.4 F 81 21 H 129/78 95 01/16/25 17:58 98.4 F 75 17 134/75 95 01/16/25 17:30 74 15 128/69 93 01/16/25 17:23 73 16 131/76 95 Intake/Output Intake/Output: Intake & Output 01/14/25 01/15/25 01/16/25 01/17/25 23:59 23:59 23:59 23:59 Intake Total 1999 1812.1 Output Total 1800 2300 Balance 200 -487.9 Meds/Results Medications: Active Medications Generic Name Dose Route Start Last Admin Trade Name Freq PRN Reason Stop Dose Admin Acetaminophen 650 mg 01/16/25 13:27 Acetaminophen 325 Mg Tablet PO Q4H PRN Mild Pain (1-3) or Fever Albuterol 1 puff 01/16/25 21:13 Albuterol Sulfate (*Sp) Aerosol 1 Puff INHALATION QID PRN Shortness Of Breath Or Wheezing Albuterol/Ipratropium 3 ml 01/17/25 07:52 Ipratropium 0.5 Mg/Albuterol Sulfate 2.5 Mg Ampul.Neb 3 Ml INHALATION Q6HRT PRN Wheezing Aripiprazole 5 mg 01/16/25 23:55 01/17/25 01:33 Aripiprazole 5 Mg Tablet PO 5 mg HS RAZ Administration Aspirin 81 mg 01/17/25 09:00 01/17/25 08:21 Aspirin 81 Mg Chewable Tablet PO 81 mg DAILY RAZ Administration Benztropine Mesylate 1 mg 01/16/25 23:50 01/17/25 01:33 Benztropine Mesylate 1 Mg Tablet PO 1 mg HS RAZ Administration Dextrose 12.5 gm 01/16/25 15:06 01/17/25 01:22 Dextrose 50% 25 Gm/50 Ml Syringe IV PUSH 12.5 gm PRN PRN Administration Hypoglycemia Protocol Enoxaparin Sodium 40 mg 01/17/25 09:00 01/17/25 08:21 Enoxaparin 40 Mg/0.4 Ml Syringe SUB-Q 40 mg DAILY RAZ Administration Folic Acid 1 mg 01/18/25 09:00 Folic Acid 1 Mg Tablet PO DAILY RAZ Glucagon 1 mg 01/16/25 15:06 Glucagon For Inj 1 Mg Vial IM PRN PRN Hypoglycemia Protocol Glucose 15 gm 01/16/25 15:06 Glucose Oral Gel 15 Gm Of Glucse In 37.5 Gm Tube PO PRN PRN Hypoglycemia Protocol Ceftriaxone Sodium 1 gm/ 50 mls @ 100 mls/hr 01/17/25 14:00 01/17/25 14:25 Sodium Chloride IVPB 100 mls/hr Q24H RAZ Administration Dextrose 1,000 mls @ 100 mls/hr 01/16/25 15:06 Dextrose 5% 1,000 Ml IVPB PRN PRN Hypoglycemia Protocol Albumin Human 50 mls @ 999 mls/hr 01/17/25 06:02 Albutein IVPB 02/16/25 06:01 Q10M PRN HYPOTENSION Lactated Ringer's 1,000 mls @ 125 mls/hr 01/17/25 07:55 01/17/25 08:26 Lr - Lactated Ringers Iv IV CONT 125 mls/hr .Q8H RAZ Administration Insulin Aspart 3 - 6 units 01/16/25 17:00 01/17/25 11:27 Insulin Aspart (*Bkc) 100 Units/Ml SUB-Q Not Given TIDWM [facility] Protocol Insulin Aspart 1 - 3 units 01/16/25 21:00 01/16/25 21:08 Insulin Aspart (*Bkc) 100 Units/Ml SUB-Q Not Given HS [facility] Protocol Ondansetron HCl 4 mg 01/16/25 13:27 Ondansetron Inj 4 Mg/2 Ml Vial IV PUSH Q4H PRN Nausea Polyethylene Glycol 17 gm 01/16/25 21:13 Polyethylene Glycol 3350 17 Gm Powd.Pack PO QAM PRN Constipation Senna/Docusate Sodium 2 tab 01/16/25 21:13 Senna/Docusate Sodium Tablet PO HS PRN Constipation Simvastatin 40 mg 01/16/25 21:30 01/16/25 22:22 Simvastatin 20 Mg Tablet PO 40 mg HS RAZ Administration Sodium Chloride 10 ml 01/16/25 22:00 01/17/25 14:27 Central Line Flush IV PUSH 10 ml Q8HR RAZ Administration Sodium Chloride 20 ml 01/16/25 18:04 Central Line Flush IV PUSH PRN PRN after blood draws Venlafaxine HCl 300 mg 01/17/25 09:00 01/17/25 08:21 Venlafaxine Hcl Xr 75 Mg Cap.Er.24h PO 300 mg DAILY@0800 RAZ Administration Radiology Results: ITS Impressions Head CT 01/16/25 11:27 IMPRESSION: 1. No acute intra-abdominal/pelvic process. Chest X-Ray 01/16/25 17:56 IMPRESSION: 1: NO ACUTE CARDIOPULMONARY DISEASE. Labs Labs: Laboratory Tests 01/17/25 04:53 01/17/25 04:53 Calcium 9.1 Phosphorus 3.4 Magnesium 2.0 Total Bilirubin 0.4 AST 21 ALT 15 Alkaline Phosphatase 104 Total Protein 6.4 Albumin 3.6 01/16/25 01/16/25 01/16/25 01/17/25 01/17/25 15:24 18:12 22:21 02:45 04:53 [place] 2.5 H* 2.5 H* 1.1 1.4 H* 1.4 H*
[2025-01-17] MEDS: cefTRIAXone 1 GM in SODIUM CHLORIDE 0.9% IV 50 ML 100 ML IVPB (14:25)
--- NOTE | 2025-01-17 16:55 | PC.NURSE ---
@ 1515- pt received from ICU to room 213 via bed accompanied by staff and family- pt oriented to room and routines of floor - no c/o of pain at this time
[2025-01-17 20:07] LABS: Lithium 0.8 mmol/L (0.6-1.2)
[2025-01-17 20:14] LABS: Anion Gap 6 mmol/L (4-12); Blood Urea Nitrogen 7 mg/dL (9-20); Calcium 9.5 mg/dL (8.4-10.2); Carbon Dioxide 26 mmol/L (22-30); Chloride 106 mmol/L (98-107); Estimated CRCL calculation 89 ml/min; Estimated Glomerular Filt Rate > 60; Glucose 127 mg/dL (65-110); Potassium 3.9 mmol/L (3.4-5.0); Sodium 138 mmol/L (137-145)
[2025-01-17] MEDS: SIMVASTATIN 20 MG TABLET 40 MG PO (21:28)
[2025-01-18] VITALS (12 sets, daily range): BP systolic 109–133; BP diastolic 69–83; PULSE 69–83; RESP 14–20; TEMP 36.7–37.6; O2SAT 95–100
--- NOTE | 2025-01-18 00:13 | PC.NURSE ---
Poison Control updated to pt's most recent [place] level. No further recommendations provided at this time.
[2025-01-18] MEDS: LACTATED RINGERS 1,000 ML 125 ML IV CONT ×2 (00:26→09:58)
[2025-01-18] MEDS: CENTRAL LINE FLUSH 10 ML IV PUSH ×3 (05:53→20:51)
[2025-01-18 06:14] LABS: Hematocrit 28.6 % (42.0-52.0); Hemoglobin 9.3 g/dL (14.0-18.0); Immature Granulocyte Percent A 0.2 % (0-0.5); Immature Platelet Fraction Pct 5.0 % (0.9-11.2); Lymphocytes Absolute Auto 1.02 K/mm3 (0.9-3.2); Mean Corpuscular HGB Conc 32.5 g/dl (32-36); Mean Corpuscular Hemoglobin 29.5 pg (26-34); Mean Corpuscular Volume 90.8 fl (80-100); Nucleated Red Blood Cells Absolute Auto 0.000 K/mm3 (0.0-0.012); Nucleated Red Blood Cells Perc 0.0 % (0.0-0.2); Platelet Count Result 150 k/mm3 (150-375); Red Blood Count 3.15 M/mm3 (4.6-6.20); White Blood Count 5.9 K/mm3 (4.5-10.0)
[2025-01-18 06:28] LABS: Lithium 0.8 mmol/L (0.6-1.2)
[2025-01-18 06:32] LABS: Magnesium 1.8 mg/dL (1.6-2.3)
[2025-01-18 06:33] LABS: Alanine Aminotransferase 16 U/L (6-50); Albumin Level 3.5 g/dL (3.5-5.1); Alkaline Phosphatase 96 U/L (38-126); Anion Gap 5 mmol/L (4-12); Aspartate Amino Transferase 22 U/L (17-59); Bilirubin,Total 0.3 mg/dL (0.2-1.3); Blood Urea Nitrogen 7 mg/dL (9-20); Calcium 9.4 mg/dL (8.4-10.2); Carbon Dioxide 27 mmol/L (22-30); Chloride 106 mmol/L (98-107); Estimated CRCL calculation 74 ml/min; Estimated Glomerular Filt Rate 58; Glucose 102 mg/dL (65-110); Potassium 3.8 mmol/L (3.4-5.0); Sodium 138 mmol/L (137-145); Total Protein 6.4 g/dL (6.3-8.2)
[2025-01-18] MEDS: VENLAFAXINE HCL XR 75 MG CAP.ER.24H 300 MG PO (09:56)
[2025-01-18] MEDS: ASPIRIN 81 MG CHEWABLE TABLET PO (09:57)
[2025-01-18] MEDS: ENOXAPARIN 40 MG/0.4 ML SYRINGE SUB-Q (09:57)
[2025-01-18] MEDS: FOLIC ACID 1 MG TABLET PO (09:57)
--- NOTE | 2025-01-18 14:00 | P.PNNP_ITS ---
Progress Note: A&P Assessment and Plan (1) [place] toxicity: Code(s): T56.891A - Toxic effect of other metals, accidental (unintentional), initial encounter Status: Resolved Assessment and Plan: * resolved * elevated lithium levels noted on admission * presumably precipitated by GRUPO/ARF * given significant decline in renal function, uncertainty of whether renal function will improve with conservative therapy, and altered mental status/encephalopathy, emergent dialysis being done on admission * HD yesterday (lithium level better but still slightly elevated on 01/17) * hold further dialysis intervention * okay to remove temporary HD catheter * follow trend of lithium levels (2) GRUPO (acute kidney injury): Code(s): N17.9 - Acute kidney failure, unspecified Status: Acute Assessment and Plan: * improvment noted * as noted by admission labs * creatinine 3.63mg/dL on presentation * etiology not clear -- possibilities include: * prerenal factors * infection * other(?) * evaluation to date noted: * renal ultrasound pending * urine electrolytes non-prerenal * rare urine eosinophils (no peripheral eosinophilia or rash) * CPK normal * mild proteinuria * UA noted -- infection being ruled out * continue with IVFs for now * HD on admission and yesterday * follow trend of repeat labs and UOP (3) Stage 3a chronic kidney disease: Code(s): N18.31 - Chronic kidney disease, stage 3a Status: Chronic Assessment and Plan: * baseline creatinine runs ~ 1.2 - 1.5mg/dl (at least from [facility] records) * presumably due to diabetes and vascular disease * cannot discount lithium playing a role as well (4) Encephalopathy: Code(s): G93.40 - Encephalopathy, unspecified Status: Acute Assessment and Plan: * baseline mentation not clear/known * last ER visit 5 days ago documented Alert and oriented x 3 * Head CT negative * urine drug screen negative * suspect partly secondary to #1 * follow mentation (5) UTI (urinary tract infection): Code(s): N39.0 - Urinary tract infection, site not specified Status: Acute Assessment and Plan: * suspected based on admission UA * follow culture data * empiric antibiotic therapy (6) Anemia: Code(s): D64.9 - Anemia, unspecified Status: Acute Assessment and Plan: * as noted on admission * partly related to GRUPO * consider checking iron studies * follow trend of H/H (7) Schizophrenia: Code(s): F20.9 - Schizophrenia, unspecified Status: Acute Assessment and Plan: * continue Abilify, Cogentin, and venlafaxine XR * hold lithium given #1 (8) Type 2 diabetes mellitus: Code(s): E11.9 - Type 2 diabetes mellitus without complications Status: Acute Assessment and Plan: * hold metformin * follow accu-cheks * glycemic control per hospitalist Will continue to follow. L Subjective Date/time seen: 01/18/25 14:00 Interval history: Follow-up for acute kidney injury/acute renal failure on chronic kidney disease and lithium toxicity. Tolerated dialysis treatment yesterday without any issues or problems; renal function/creatinine better with good urine output in response to IVFs; lithium level has normalized; mental status seems to have improved as well; no apparent distress noted. Exam 2 Narrative: General: WD/WN male in NAD; remains somewhat confused Heart: normal S1 and S2; no rub Lungs: clear to auscultation Abdomen: soft, nontender, nondistended, positive bowel sounds Extremities: no cyanosis or clubbing; no edema Skin: warm and dry Objective Data Vital Signs Vital Signs: Vital Signs Temp Pulse Resp BP Pulse Ox O2 Del Method O2 Flow Rate 01/18/25 12:00 97 Nasal Cannula 2 01/18/25 11:54 99.7 F H 80 16 109/69 96 01/18/25 08:00 83 01/18/25 08:00 97 Nasal Cannula 2 01/18/25 08:00 98.5 F 83 16 117/83 95 01/18/25 06:00 76 01/18/25 04:00 75 01/18/25 04:00 97 Nasal Cannula 2 01/18/25 03:41 98.1 F 69 20 116/72 97 01/18/25 02:00 77 01/18/25 00:00 75 01/18/25 00:00 100 Nasal Cannula 2 01/17/25 23:39 98.1 F 81 20 107/75 100 01/17/25 22:00 79 01/17/25 20:00 79 01/17/25 20:00 Room Air 01/17/25 19:04 98.3 F 84 20 127/72 93 Intake/Output Intake/Output: Intake & Output 01/15/25 01/16/25 01/17/25 01/18/25 23:59 23:59 23:59 23:59 Intake Total 1999 3319.2 2902 Output Total 1799 4200 2750 Balance 200 -880.8 152 Meds/Results Medications: Active Medications Generic Name Dose Route Start Last Admin Trade Name Freq PRN Reason Stop Dose Admin Acetaminophen 650 mg 01/16/25 13:27 Acetaminophen 325 Mg Tablet PO Q4H PRN Mild Pain (1-3) or Fever Albuterol 1 puff 01/16/25 21:13 Albuterol Sulfate (*Sp) Aerosol 1 Puff INHALATION QID PRN Shortness Of Breath Or Wheezing Albuterol/Ipratropium 3 ml 01/17/25 07:52 Ipratropium 0.5 Mg/Albuterol Sulfate 2.5 Mg Ampul.Neb 3 Ml INHALATION Q6HRT PRN Wheezing Aripiprazole 5 mg 01/16/25 23:55 01/17/25 21:29 Aripiprazole 5 Mg Tablet PO 5 mg HS RAZ Administration Aspirin 81 mg 01/17/25 09:00 01/18/25 09:57 Aspirin 81 Mg Chewable Tablet PO 81 mg DAILY RAZ Administration Benztropine Mesylate 1 mg 01/16/25 23:50 01/17/25 21:29 Benztropine Mesylate 1 Mg Tablet PO 1 mg HS RAZ Administration Dextrose 12.5 gm 01/16/25 15:06 01/17/25 01:22 Dextrose 50% 25 Gm/50 Ml Syringe IV PUSH 12.5 gm PRN PRN Administration Hypoglycemia Protocol Enoxaparin Sodium 40 mg 01/17/25 09:00 01/18/25 09:57 Enoxaparin 40 Mg/0.4 Ml Syringe SUB-Q 40 mg DAILY RAZ Administration Folic Acid 1 mg 01/18/25 09:00 01/18/25 09:57 Folic Acid 1 Mg Tablet PO 1 mg DAILY RAZ Administration Glucagon 1 mg 01/16/25 15:06 Glucagon For Inj 1 Mg Vial IM PRN PRN Hypoglycemia Protocol Glucose 15 gm 01/16/25 15:06 Glucose Oral Gel 15 Gm Of Glucse In 37.5 Gm Tube PO PRN PRN Hypoglycemia Protocol Ceftriaxone Sodium 1 gm/ 50 mls @ 100 mls/hr 01/17/25 14:00 01/18/25 15:15 Sodium Chloride IVPB 100 mls/hr Q24H RAZ Administration Dextrose 1,000 mls @ 100 mls/hr 01/16/25 15:06 Dextrose 5% 1,000 Ml IVPB PRN PRN Hypoglycemia Protocol Albumin Human 50 mls @ 999 mls/hr 01/17/25 06:02 Albutein IVPB 02/16/25 06:01 Q10M PRN HYPOTENSION Lactated Ringer's 1,000 mls @ 50 mls/hr 01/17/25 07:55 01/18/25 09:58 Lr - Lactated Ringers Iv IV CONT 125 mls/hr .Q20H ARZ Administration Insulin Aspart 3 - 6 units 01/16/25 17:00 01/18/25 17:07 Insulin Aspart (*Bkc) 100 Units/Ml SUB-Q Not Given TIDWM RAZ Protocol Insulin Aspart 1 - 3 units 01/16/25 21:00 01/17/25 21:27 Insulin Aspart (*Bkc) 100 Units/Ml SUB-Q Not Given HS RAZ Protocol Ondansetron HCl 4 mg 01/16/25 13:27 Ondansetron Inj 4 Mg/2 Ml Vial IV PUSH Q4H PRN Nausea Polyethylene Glycol 17 gm 01/16/25 21:13 Polyethylene Glycol 3350 17 Gm Powd.Pack PO QAM PRN Constipation Senna/Docusate Sodium 2 tab 01/16/25 21:13 Senna/Docusate Sodium Tablet PO HS PRN Constipation Simvastatin 40 mg 01/16/25 21:30 01/17/25 21:28 Simvastatin 20 Mg Tablet PO 40 mg HS RAZ Administration Sodium Chloride 10 ml 01/16/25 22:00 01/18/25 15:14 Central Line Flush IV PUSH 10 ml Q8HR RAZ Administration Sodium Chloride 20 ml 01/16/25 18:04 Central Line Flush IV PUSH PRN PRN after blood draws Venlafaxine HCl 300 mg 01/17/25 09:00 01/18/25 09:56 Venlafaxine Hcl Xr 75 Mg Cap.Er.24h PO 300 mg DAILY@0800 RAZ Administration Radiology Results: ITS Impressions Head CT 01/16/25 11:27 IMPRESSION: 1. No acute intra-abdominal/pelvic process. Chest X-Ray 01/16/25 17:56 IMPRESSION: 1: NO ACUTE CARDIOPULMONARY DISEASE. Renal Ultrasound 01/17/25 15:01 Impression: 1: Unremarkable renal ultrasound. No stones, masses or hydronephrosis. Labs Labs: Laboratory Tests 01/18/25 05:57 01/18/25 05:57 Calcium 9.4 Phosphorus 3.0 Magnesium 1.8 Total Bilirubin 0.3 AST 22 ALT 16 Alkaline Phosphatase 96 Total Protein 6.4 Albumin 3.5 [place] 0.8
[2025-01-18] MEDS: cefTRIAXone 1 GM in SODIUM CHLORIDE 0.9% IV 50 ML 100 ML IVPB (15:15)
--- NOTE | 2025-01-18 16:55 | PM.IMPN ---
Progress Note: A&P Assessment and Plan (1) [place] toxicity: Code(s): T56.891A - Toxic effect of other metals, accidental (unintentional), initial encounter Status: Acute Assessment and Plan: Patient is on lithium and now with elevated level likely secondary to impaired renal function Poison control and Nephrology were consulted Emergently dialyzed [place] level 0.8 this morning I discussed with Dr Cordoba who cleared patient for discharge Continue monitor levels Continue IV fluids (2) Schizophrenia: Code(s): F20.9 - Schizophrenia, unspecified Status: Acute Assessment and Plan: Hold lithium Continue Abilify Cogentin and venlafaxine XR Psych consulted for psych meds adjustment I discussed with Nephrology who noted that from his experience lithium toxicity will be recurrent and thus needs medication adjustment (3) Type 2 diabetes mellitus: Code(s): E11.9 - Type 2 diabetes mellitus without complications Status: Acute Assessment and Plan: Sliding scale insulin Hold metformin (4) GRUPO (acute kidney injury): Code(s): N17.9 - Acute kidney failure, unspecified Status: Acute Assessment and Plan: Presented with elevated creatinine. On review of chart patient appears to have chronic kidney disease Presented with creatinine of 3.63. It is improving with IV fluids Bradley catheter for accurate I&Os resolved to baseline, Cr 1.31 Nephrology following (5) Encephalopathy: Code(s): G93.40 - Encephalopathy, unspecified Status: Acute Assessment and Plan: Baseline unknown. Patient appears encephalopathy. Head CT was negative. Likely toxic metabolic encephalopathy UDS was negative Avoid sedatives resolved (6) UTI (urinary tract infection): Code(s): N39.0 - Urinary tract infection, site not specified Status: Acute Assessment and Plan: IV Rocephin Blood and urine cultures Plan DVT prophylaxis -Lovenox Nutrition -renal diet Code Status - Full Code Subjective Date/time seen: 01/18/25 16:55 Interval history: Comfortable at bedside Discussed with Nephrology Review of Systems Review of Systems: ROS unobtainable: Yes unobtainable due to medical condition and unobtainable due to mental status Exam Narrative: General: Pt is alert confused and in NAD Lungs/Chest: Trachea central Clear BS B/L, No crackles or wheezing. Cardiac: RRR. Normal S1 S2. No murmurs Circulation: Pedal pulses are intact and symmetrical. Abdomen: Normal bowel sounds.. Soft. NT. ND. Extremities: No clubbing, cyanosis or edema. Warm : Bradley in place Neurologic: Follows commands. Moves all 4 extremities PERRL fine tremor scenes in the hands AO x1 Skin: No Rash Objective Data Vital Signs Vital Signs: Vital Signs - 24 hr 01/17/25 19:04 01/17/25 20:00 01/17/25 20:00 Temperature 98.3 F Pulse Rate 84 79 Respiratory Rate 20 Blood Pressure 127/72 Pulse Oximetry 93 Oxygen Delivery Room Air Oxygen Flow Rate 01/17/25 22:00 01/17/25 23:39 01/18/25 00:00 Temperature 98.1 F Pulse Rate 79 81 Respiratory Rate 20 Blood Pressure 107/75 Pulse Oximetry 100 100 Oxygen Delivery Nasal Cannula Oxygen Flow Rate 2 01/18/25 00:00 01/18/25 02:00 01/18/25 03:41 Temperature 98.1 F Pulse Rate 75 77 69 Respiratory Rate 20 Blood Pressure 116/72 Pulse Oximetry 97 Oxygen Delivery Oxygen Flow Rate 01/18/25 04:00 01/18/25 04:00 01/18/25 06:00 Temperature Pulse Rate 75 76 Respiratory Rate Blood Pressure Pulse Oximetry 97 Oxygen Delivery Nasal Cannula Oxygen Flow Rate 2 01/18/25 08:00 01/18/25 08:00 01/18/25 08:00 Temperature 98.5 F Pulse Rate 83 83 Respiratory Rate 16 Blood Pressure 117/83 Pulse Oximetry 95 97 Oxygen Delivery Nasal Cannula Oxygen Flow Rate 2 01/18/25 11:54 01/18/25 12:00 01/18/25 16:00 Temperature 99.7 F H Pulse Rate 80 Respiratory Rate 16 Blood Pressure 109/69 Pulse Oximetry 96 97 97 Oxygen Delivery Nasal Cannula Room Air Oxygen Flow Rate 2 01/18/25 16:00 Temperature 98.2 F Pulse Rate 76 Respiratory Rate 16 Blood Pressure 129/78 Pulse Oximetry 97 Oxygen Delivery Oxygen Flow Rate Intake/Output Intake/Output: Intake & Output 01/15/25 01/16/25 01/17/25 01/18/25 23:59 23:59 23:59 23:59 Intake Total 1999 3269.2 2902 Output Total 1800 4200 2750 Balance 200 -930.8 152 Meds/Results Medications: Active Medications Generic Name Dose Route Start Last Admin Trade Name Freq PRN Reason Stop Dose Admin Acetaminophen 650 mg 01/16/25 13:27 Acetaminophen 325 Mg Tablet PO Q4H PRN Mild Pain (1-3) or Fever Albuterol 1 puff 01/16/25 21:13 Albuterol Sulfate (*Sp) Aerosol 1 Puff INHALATION QID PRN Shortness Of Breath Or Wheezing Albuterol/Ipratropium 3 ml 01/17/25 07:52 Ipratropium 0.5 Mg/Albuterol Sulfate 2.5 Mg Ampul.Neb 3 Ml INHALATION Q6HRT PRN Wheezing Aripiprazole 5 mg 01/16/25 23:55 01/17/25 21:29 Aripiprazole 5 Mg Tablet PO 5 mg HS RAZ Administration Aspirin 81 mg 01/17/25 09:00 01/18/25 09:57 Aspirin 81 Mg Chewable Tablet PO 81 mg DAILY RAZ Administration Benztropine Mesylate 1 mg 01/16/25 23:50 01/17/25 21:29 Benztropine Mesylate 1 Mg Tablet PO 1 mg HS RAZ Administration Dextrose 12.5 gm 01/16/25 15:06 01/17/25 01:22 Dextrose 50% 25 Gm/50 Ml Syringe IV PUSH 12.5 gm PRN PRN Administration Hypoglycemia Protocol Enoxaparin Sodium 40 mg 01/17/25 09:00 01/18/25 09:57 Enoxaparin 40 Mg/0.4 Ml Syringe SUB-Q 40 mg DAILY RAZ Administration Folic Acid 1 mg 01/18/25 09:00 01/18/25 09:57 Folic Acid 1 Mg Tablet PO 1 mg DAILY RAZ Administration Glucagon 1 mg 01/16/25 15:06 Glucagon For Inj 1 Mg Vial IM PRN PRN Hypoglycemia Protocol Glucose 15 gm 01/16/25 15:06 Glucose Oral Gel 15 Gm Of Glucse In 37.5 Gm Tube PO PRN PRN Hypoglycemia Protocol Ceftriaxone Sodium 1 gm/ 50 mls @ 100 mls/hr 01/17/25 14:00 01/17/25 14:25 Sodium Chloride IVPB 100 mls/hr Q24H RAZ Administration Dextrose 1,000 mls @ 100 mls/hr 01/16/25 15:06 Dextrose 5% 1,000 Ml IVPB PRN PRN Hypoglycemia Protocol Albumin Human 50 mls @ 999 mls/hr 01/17/25 06:02 Albutein IVPB 02/16/25 06:01 Q10M PRN HYPOTENSION Lactated Ringer's 1,000 mls @ 50 mls/hr 01/17/25 07:55 01/18/25 09:58 Lr - Lactated Ringers Iv IV CONT 125 mls/hr .Q20H RAZ Administration Insulin Aspart 3 - 6 units 01/16/25 17:00 01/18/25 09:58 Insulin Aspart (*Bkc) 100 Units/Ml SUB-Q Not Given TIDWM [facility] Protocol Insulin Aspart 1 - 3 units 01/16/25 21:00 01/17/25 21:27 Insulin Aspart (*Bkc) 100 Units/Ml SUB-Q Not Given HS [facility] Protocol Ondansetron HCl 4 mg 01/16/25 13:27 Ondansetron Inj 4 Mg/2 Ml Vial IV PUSH Q4H PRN Nausea Polyethylene Glycol 17 gm 01/16/25 21:13 Polyethylene Glycol 3350 17 Gm Powd.Pack PO QAM PRN Constipation Senna/Docusate Sodium 2 tab 01/16/25 21:13 Senna/Docusate Sodium Tablet PO HS PRN Constipation Simvastatin 40 mg 01/16/25 21:30 01/17/25 21:28 Simvastatin 20 Mg Tablet PO 40 mg HS RAZ Administration Sodium Chloride 10 ml 01/16/25 22:00 01/18/25 05:53 Central Line Flush IV PUSH 10 ml Q8HR RAZ Administration Sodium Chloride 20 ml 01/16/25 18:04 Central Line Flush IV PUSH PRN PRN after blood draws Venlafaxine HCl 300 mg 01/17/25 09:00 01/18/25 09:56 Venlafaxine Hcl Xr 75 Mg Cap.Er.24h PO 300 mg DAILY@0800 RAZ Administration Radiology Results: ITS Impressions Head CT 01/16/25 11:27 IMPRESSION: 1. No acute intra-abdominal/pelvic process. Chest X-Ray 01/16/25 17:56 IMPRESSION: 1: NO ACUTE CARDIOPULMONARY DISEASE. Renal Ultrasound 01/17/25 15:01 Impression: 1: Unremarkable renal ultrasound. No stones, masses or hydronephrosis. Labs Labs: Laboratory Results - last 24 hr 01/17/25 01/17/25 01/17/25 19:48 20:32 23:47 WBC RBC Hgb Hct MCV MCH MCHC RDW Plt Count MPV Immature Gran % (Auto) Neut % (Auto) Lymph % (Auto) [place] % (Auto) Eos % (Auto) Baso % (Auto) Lymph # (Auto) [place] # (Auto) Eos # (Auto) Baso # (Auto) Abs Immat Gran (auto) Absolute Neuts (auto) Absolute Nucleated RBC Nucleated RBC % % Immature Plt Fraction Sodium 138 Potassium 3.9 Chloride 106 Carbon Dioxide 26 Anion Gap 6 BUN 7 L D Creatinine 1.08 Estim Creat Clear Calc 89 Estimated GFR > 60 Glucose 127 H POC Capillary Glucose 125 H 99 Calcium 9.5 Phosphorus Magnesium Total Bilirubin AST ALT Alkaline Phosphatase Total Protein Albumin [place] 0.8 01/18/25 01/18/25 01/18/25 03:53 05:57 07:45 WBC 5.9 RBC 3.15 L Hgb 9.3 L Hct 28.6 L MCV 90.8 MCH 29.5 MCHC 32.5 RDW 13.3 Plt Count 150 MPV 11.1 H Immature Gran % (Auto) 0.2 Neut % (Auto) 66.6 Lymph % (Auto) 17.3 L [place] % (Auto) 12.2 H Eos % (Auto) 3.4 Baso % (Auto) 0.3 Lymph # (Auto) 1.02 [place] # (Auto) 0.7 H Eos # (Auto) 0.2 Baso # (Auto) 0.0 Abs Immat Gran (auto) 0.01 Absolute Neuts (auto) 3.9 Absolute Nucleated RBC 0.000 Nucleated RBC % 0.0 % Immature Plt Fraction 5.0 Sodium 138 Potassium 3.8 Chloride 106 Carbon Dioxide 27 Anion Gap 5 BUN 7 L Creatinine 1.31 H Estim Creat Clear Calc 74 Estimated GFR 58 L Glucose 102 POC Capillary Glucose 108 H 107 H Calcium 9.4 Phosphorus 3.0 Magnesium 1.8 Total Bilirubin 0.3 AST 22 ALT 16 Alkaline Phosphatase 96 Total Protein 6.4 Albumin 3.5 [place] 0.8 01/18/25 01/18/25 11:18 15:39 WBC RBC Hgb Hct MCV MCH MCHC RDW Plt Count MPV Immature Gran % (Auto) Neut % (Auto) Lymph % (Auto) [place] % (Auto) Eos % (Auto) Baso % (Auto) Lymph # (Auto) [place] # (Auto) Eos # (Auto) Baso # (Auto) Abs Immat Gran (auto) Absolute Neuts (auto) Absolute Nucleated RBC Nucleated RBC % % Immature Plt Fraction Sodium Potassium Chloride Carbon Dioxide Anion Gap BUN Creatinine Estim Creat Clear Calc Estimated GFR Glucose POC Capillary Glucose 160 H 110 H Calcium Phosphorus Magnesium Total Bilirubin AST ALT Alkaline Phosphatase Total Protein Albumin [place] Quality VTE Prophylaxis VTE prophylaxis: pharmacologic ordered
--- NOTE | 2025-01-18 18:15 | PC.NURSE ---
This patient, Tino Garnica, was received from [[id number]] on 01/18/25 at 1815. Patient/family oriented to unit policies and routines.
[2025-01-18] MEDS: INSULIN ASPART (*BKC) 100 UNITS/ML SUB-Q (20:42)
[2025-01-18] MEDS: SIMVASTATIN 20 MG TABLET 40 MG PO (20:42)
[2025-01-18] MEDS: BENZTROPINE MESYLATE 1 MG TABLET PO (20:42)
[2025-01-19] VITALS: BP 121/71; PULSE 81; RESP 18; TEMP 36.8; O2SAT 97
[2025-01-19] MEDS: LACTATED RINGERS 1,000 ML 125 ML IV CONT (01:23)
[2025-01-19 04:00] VITALS: BP 121/67; PULSE 65; RESP 20; TEMP 36.3; O2SAT 95
[2025-01-19] MEDS: CENTRAL LINE FLUSH 10 ML IV PUSH (05:52)
[2025-01-19 06:43] LABS: Hematocrit 28.9 % (42.0-52.0); Hemoglobin 9.4 g/dL (14.0-18.0); Immature Granulocyte Percent A 0.3 % (0-0.5); Lymphocytes Absolute Auto 1.43 K/mm3 (0.9-3.2); Mean Corpuscular HGB Conc 32.5 g/dl (32-36); Mean Corpuscular Hemoglobin 29.3 pg (26-34); Mean Corpuscular Volume 90.0 fl (80-100); Nucleated Red Blood Cells Absolute Auto 0.000 K/mm3 (0.0-0.012); Nucleated Red Blood Cells Perc 0.0 % (0.0-0.2); Platelet Count Result 148 k/mm3 (150-375); Red Blood Count 3.21 M/mm3 (4.6-6.20); White Blood Count 5.9 K/mm3 (4.5-10.0)
[2025-01-19 07:16] LABS: Albumin Level 3.5 g/dL (3.5-5.1); Anion Gap 8 mmol/L (4-12); Blood Urea Nitrogen 7 mg/dL (9-20); Calcium 9.5 mg/dL (8.4-10.2); Carbon Dioxide 24 mmol/L (22-30); Chloride 108 mmol/L (98-107); Estimated CRCL calculation 66 ml/min; Estimated Glomerular Filt Rate 51; Glucose 93 mg/dL (65-110); Potassium 3.8 mmol/L (3.4-5.0); Sodium 140 mmol/L (137-145)
--- NOTE | 2025-01-19 07:21 | WPDCNPSYCH ---
Assessment and Plan Assessment and plan (1) Schizoaffective disorder: Code(s): F25.9 - Schizoaffective disorder, unspecified Status: Acute (2) [place] toxicity: Code(s): T56.891A - Toxic effect of other metals, accidental (unintentional), initial encounter Status: Acute Plan Patient presenting with significant lithium toxicity at 2.5, which has since trended down to within normal ranges with medical intervention and support. Unclear of full extent of psychiatric history due to patient's altered state, poor historian. No agitation or aggression has been reported since admission. Unsure if he follows with psychiatrist on outpatient basis. 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 Recommendations: -Continue off of lithium and trend levels -Decrease venlafaxine to 150mg daily-- it is likely he has a history of iván given previous lithium therapy. venlafaxine may trigger iván, which is more likely without additional mood stabilization effects of lithium. -Continue Abilify at current dose for mood stabilization, antipsychotic treatment in schizoaffective disorder. May need dose increase in the future for [facility] management, however would like to monitor for mental status clearing prior to increasing his medication. -Recommend following up with psychiatry at discharge. Please do not hesitate to re-consult for patient status changes or call for further clarification/questions. HPI Data of Consult Date/Time: 01/19/25 07:21 Requesting Physician: Bertha Garcia MD Primary Care Provider: Christopher Sanchez MD Consult Narrative Narrative: Tino Garnica is a 49 year old male with known psychiatric history of schizoaffective disorder. He was admitted 01/16 from his snf for altered mental status. It was subsequently found his lithium level was significantly elevated, likely secondary to renal impairment. He emergently received dialysis and supportive care, lithium has since trended down- most recent level yesterday 0.8. Psychiatry has been consulted for assistance in medication management. Upon exam this morning, he is rather groggy and has difficulty participating in interview, thus information obtained is limited. He appears to be oriented to self only. Per chart review, his schizoaffective disorder was managed on lithium, aripiprazole, venlafaxine, and Cogentin- all of which have been resumed since admission. There is no agitation noted or reported since admission. Unclear if this is his mental status baseline or altered due to lithium toxicity. Review of Systems Psychiatric: Psychiatric: Reports as per [facility] Past Medical History Medical History Self-care deficit Hyperkalemia Schizophrenia Posttraumatic stress disorder Depression with anxiety Type 2 diabetes mellitus Obstructive sleep apnea on CPAP Hyperlipidemia Hypertension Tobacco dependence Asthma Chronic obstructive pulmonary disease Surgical History Surgical History History of appendectomy Social History Social History Social History: Surrogate medical decision maker: Vicky Mancia, sister ([phone]). Code status: Full code. Smoking packs per day: 2 Smoking cigarettes per day: 40.0 Smoking status: Unknown if ever smoked Tobacco type: cigarettes Alcohol intake: unknown Substance use: unknown Spiritual care concerns: No Meds Home Medications and Allergies Home Medications ?Medication ?Instructions ?Recorded ?Confirmed ?Type aripiprazole 10 mg tablet 5 mg PO HS 07/26/24 01/16/25 History aspirin 81 mg capsule 81 mg PO DAILY 07/26/24 01/16/25 History benztropine 1 mg tablet 1 mg PO HS 07/26/24 01/16/25 History diclofenac sodium 1 % topical gel See Rx Instructions topical 07/26/24 01/16/25 History .COMPLEX PRN pain fluticasone 250 mcg-salmeterol 50 1 inh inhalation Q12H 07/26/24 01/16/25 History mcg/dose blistr powdr for inhalation folic acid 1 mg tablet 1 mg PO DAILY 07/26/24 01/16/25 History lithium carbonate 300 mg capsule 300 mg PO BID 07/26/24 01/16/25 History losartan 50 mg-hydrochlorothiazide 1 tablet PO DAILY 07/26/24 01/16/25 History 12.5 mg tablet metformin 1,000 mg tablet 1,000 mg PO BID 07/26/24 01/16/25 History omega 7-mzk-fkc-fish oil 1,000 mg 1 cap PO HS 07/26/24 01/16/25 History (120 mg-180 mg) capsule (Fish Oil) sennosides 8.6 mg-docusate sodium 2 tab-cap PO HS PRN constipation 07/26/24 01/16/25 History 50 mg tablet (Senna-Time S) simvastatin 40 mg tablet 40 mg PO HS 07/26/24 01/16/25 History sitagliptin phosphate 50 mg tablet 50 mg PO DAILY 07/26/24 01/16/25 History (Januvia) venlafaxine 150 mg 300 mg PO DAILY 07/26/24 01/16/25 History capsule,extended release 24 hr paliperidone palm (3 month) 819 819 mg IM .every 3 months 07/28/24 01/16/25 History mg/2.63 mL intramuscular syringe (Invega Trinza) albuterol sulfate 90 mcg/actuation 1 inh inhalation QID PRN shortness 01/16/25 01/16/25 History aerosol inhaler (Ventolin HFA) of breath or wheezing desipramine 150 mg tablet 150 mg PO HS 01/16/25 01/16/25 History nicotine 21 mg/24 hr daily 1 patch transdermal DAILY PRN 01/16/25 01/16/25 History transdermal patch (Nicoderm CQ) withdrawal symptoms polyethylene glycol 3350 17 gram 17 g PO QAM PRN constipation 01/16/25 01/16/25 History oral powder packet (Miralax) cholecalciferol (vitamin D3) 125 50,000 unit PO MONTHLY 01/17/25 01/17/25 History mcg (5,000 unit) tablet mecobalamin (vitamin B12) 1,000 1,000 mcg PO DAILY 01/17/25 01/17/25 History mcg chewable tablet Allergies Allergy/AdvReac Type Severity Reaction Status Date / Time No Known Allergies Allergy Mild Verified 01/12/25 13:59 Vital Signs Vital Signs - 24 hr 01/18/25 08:00 01/18/25 08:00 01/18/25 08:00 Temperature 98.5 F Pulse Rate 83 83 Respiratory Rate 16 Blood Pressure 117/83 Pulse Oximetry 95 97 Oxygen Delivery Nasal Cannula Oxygen Flow Rate 2 01/18/25 10:00 01/18/25 11:54 01/18/25 12:00 Temperature 99.7 F H Pulse Rate 74 80 Respiratory Rate 16 Blood Pressure 109/69 Pulse Oximetry 96 97 Oxygen Delivery Nasal Cannula Oxygen Flow Rate 2 01/18/25 12:00 01/18/25 14:00 01/18/25 16:00 Temperature Pulse Rate 75 74 Respiratory Rate Blood Pressure Pulse Oximetry 97 Oxygen Delivery Room Air Oxygen Flow Rate 01/18/25 16:00 01/18/25 16:00 01/18/25 18:20 Temperature 98.2 F Pulse Rate 76 75 Respiratory Rate 16 Blood Pressure 129/78 Pulse Oximetry 97 Oxygen Delivery Room Air Oxygen Flow Rate 01/18/25 20:00 01/18/25 20:00 01/19/25 00:00 Temperature 98.9 F 98.2 F Pulse Rate 78 81 Respiratory Rate 14 18 Blood Pressure 133/80 121/71 Pulse Oximetry 95 97 Oxygen Delivery Room Air Oxygen Flow Rate 01/19/25 04:00 Temperature 97.4 F L Pulse Rate 65 Respiratory Rate 20 Blood Pressure 121/67 Pulse Oximetry 95 Oxygen Delivery Oxygen Flow Rate Exam Psych: Appearance: grossly normal Mental Status: other (A/O x 1) Speech and movement: Other speech and movement exam findings present (Psych) (soft) Affect: Indifferent affect present and Blunted affect present Thought process: Other thought process findings present (deuce) Thought content: Yes other (deuce) Insight: Limited insight present (Psych) Judgement: Limited judgement present (Psych) Results Labs 01/19/25 06:17 01/19/25 06:17 Labs: Short CBC 01/19/25 Range/Units 06:17 WBC 5.9 (4.5-10.0) K/mm3 Hgb 9.4 L (14.0-18.0) g/dL Hct 28.9 L (42.0-52.0) % Plt Count 148 L (150-375) k/mm3 BMP 01/19/25 06:17 Sodium 140 Potassium 3.8 Chloride 108 H Carbon Dioxide 24 BUN 7 L Creatinine 1.47 H Glucose 93 Calcium 9.5 Liver Function 01/19/25 Range/Units 06:17 Albumin 3.5 (3.5-5.1) g/dL
[2025-01-19 07:35] VITALS: BP 112/74; PULSE 69; RESP 18; TEMP 37; O2SAT 100
[2025-01-19 08:02] LABS: Lithium 0.6 mmol/L (0.6-1.2)
[2025-01-19 08:13] LABS: Iron 62 ug/dL (49-181)
[2025-01-19 08:22] LABS: Percent Iron Saturation 27 % (20-50)
[2025-01-19 08:55] LABS: Ferritin 183.00 ng/mL (11.1-264)
[2025-01-19] MEDS: ASPIRIN 81 MG CHEWABLE TABLET PO (09:42)
[2025-01-19] MEDS: ENOXAPARIN 40 MG/0.4 ML SYRINGE SUB-Q (09:42)
[2025-01-19] MEDS: FOLIC ACID 1 MG TABLET PO (09:42)
--- NOTE | 2025-01-19 10:27 | P.PNNP_ITS ---
Progress Note: A&P Assessment and Plan (1) [place] toxicity: Code(s): T56.891A - Toxic effect of other metals, accidental (unintentional), initial encounter Status: Resolved Assessment and Plan: * resolved * elevated lithium levels noted on admission * presumably precipitated by GRUPO/ARF * given significant decline in renal function, uncertainty of whether renal function will improve with conservative therapy, and altered mental status/encephalopathy, emergent dialysis being done on admission * HD yesterday (lithium level better but still slightly elevated on 01/17) * hold further dialysis intervention * okay to remove temporary HD catheter * follow trend of lithium levels (2) GRUPO (acute kidney injury): Code(s): N17.9 - Acute kidney failure, unspecified Status: Acute Assessment and Plan: * improvement noted * as noted by admission labs * creatinine 3.63mg/dL on presentation * etiology not clear -- possibilities include: * prerenal factors * infection * other(?) * evaluation to date noted: * renal ultrasound pending * urine electrolytes non-prerenal * rare urine eosinophils (no peripheral eosinophilia or rash) * CPK normal * mild proteinuria * UA noted -- infection being ruled out * continue with IVFs for now * HD on admission and yesterday * follow trend of repeat labs and UOP (3) Stage 3a chronic kidney disease: Code(s): N18.31 - Chronic kidney disease, stage 3a Status: Chronic Assessment and Plan: * baseline creatinine runs ~ 1.2 - 1.5mg/dl (at least from [facility] records) * presumably due to diabetes and vascular disease * cannot discount lithium playing a role as well (4) Encephalopathy: Code(s): G93.40 - Encephalopathy, unspecified Status: Acute Assessment and Plan: * baseline mentation not clear/known * last ER visit 5 days ago documented Alert and oriented x 3 * Head CT negative * urine drug screen negative * suspect partly secondary to #1 * follow mentation (5) UTI (urinary tract infection): Code(s): N39.0 - Urinary tract infection, site not specified Status: Acute Assessment and Plan: * suspected based on admission UA * follow culture data - negative urine culture * antibiotics stopped (6) Anemia: Code(s): D64.9 - Anemia, unspecified Status: Acute Assessment and Plan: * as noted on admission * partly related to GRUPO * adequate iron stores by anemia studies * follow trend of H/H (7) Schizophrenia: Code(s): F20.9 - Schizophrenia, unspecified Status: Acute Assessment and Plan: * continue Abilify, Cogentin, and venlafaxine XR * Psychiatry recommendations noted * holding lithium at this time (8) Type 2 diabetes mellitus: Code(s): E11.9 - Type 2 diabetes mellitus without complications Status: Acute Assessment and Plan: * hold metformin * follow accu-cheks * glycemic control per hospitalist Not opposed to discharge from renal perspective if otherwise medically stable. Not much else to add -- will continue to follow from a distance. L Subjective Date/time seen: 01/19/25 10:27 Interval history: Follow-up for acute kidney injury/acute renal failure on chronic kidney disease and lithium toxicity. Renal function/creatinine remains relatively stable with good urine output noted; lithium level remains stable as well; seen by Psychiatry earlier this morning with recommendations noted; no apparent distress noted at the time of my visit. Exam 2 Narrative: General: WD/WN male in NAD Heart: normal S1 and S2; no rub Lungs: clear to auscultation Abdomen: soft, nontender, nondistended, positive bowel sounds Extremities: no cyanosis or clubbing; no edema Skin: no rash or nodules Objective Data Vital Signs Vital Signs: Vital Signs Temp Pulse Resp BP Pulse Ox O2 Del Method 01/19/25 10:30 98.2 F 97 16 124/56 L 97 01/19/25 09:38 Room Air 01/19/25 07:35 98.6 F 69 18 112/74 100 01/19/25 04:00 97.4 F L 65 20 121/67 95 01/19/25 00:00 98.2 F 81 18 121/71 97 01/18/25 20:00 Room Air 01/18/25 20:00 98.9 F 78 14 133/80 95 Intake/Output Intake/Output: Intake & Output 01/16/25 01/17/25 01/18/25 01/19/25 23:59 23:59 23:59 23:59 Intake Total 1999 3319.2 4142 2175.6 Output Total 1800 4200 3525 1400 Balance 200 -880.8 617 775.6 Meds/Results Medications: Active Medications Generic Name Dose Route Start Last Admin Trade Name Freq PRN Reason Stop Dose Admin Acetaminophen 650 mg 01/16/25 13:27 Acetaminophen 325 Mg Tablet PO Q4H PRN Mild Pain (1-3) or Fever Albuterol 1 puff 01/16/25 21:13 Albuterol Sulfate (*Sp) Aerosol 1 Puff INHALATION QID PRN Shortness Of Breath Or Wheezing Albuterol/Ipratropium 3 ml 01/17/25 07:52 Ipratropium 0.5 Mg/Albuterol Sulfate 2.5 Mg Ampul.Neb 3 Ml INHALATION Q6HRT PRN Wheezing Aripiprazole 5 mg 01/16/25 23:55 01/18/25 20:42 Aripiprazole 5 Mg Tablet PO 5 mg HS RAZ Administration Aspirin 81 mg 01/17/25 09:00 01/19/25 09:42 Aspirin 81 Mg Chewable Tablet PO 81 mg DAILY RAZ Administration Benztropine Mesylate 1 mg 01/16/25 23:50 01/18/25 20:42 Benztropine Mesylate 1 Mg Tablet PO 1 mg HS RAZ Administration Dextrose 12.5 gm 01/16/25 15:06 01/17/25 01:22 Dextrose 50% 25 Gm/50 Ml Syringe IV PUSH 12.5 gm PRN PRN Administration Hypoglycemia Protocol Enoxaparin Sodium 40 mg 01/17/25 09:00 01/19/25 09:42 Enoxaparin 40 Mg/0.4 Ml Syringe SUB-Q 40 mg DAILY RAZ Administration Folic Acid 1 mg 01/18/25 09:00 01/19/25 09:42 Folic Acid 1 Mg Tablet PO 1 mg DAILY RAZ Administration Glucagon 1 mg 01/16/25 15:06 Glucagon For Inj 1 Mg Vial IM PRN PRN Hypoglycemia Protocol Glucose 15 gm 01/16/25 15:06 Glucose Oral Gel 15 Gm Of Glucse In 37.5 Gm Tube PO PRN PRN Hypoglycemia Protocol Dextrose 1,000 mls @ 100 mls/hr 01/16/25 15:06 Dextrose 5% 1,000 Ml IVPB PRN PRN Hypoglycemia Protocol Albumin Human 50 mls @ 999 mls/hr 01/17/25 06:02 Albutein IVPB 02/16/25 06:01 Q10M PRN HYPOTENSION Insulin Aspart 3 - 6 units 01/16/25 17:00 01/19/25 17:01 Insulin Aspart (*Bkc) 100 Units/Ml SUB-Q Not Given TIDWM [facility] Protocol Insulin Aspart 1 - 3 units 01/16/25 21:00 01/18/25 20:42 Insulin Aspart (*Bkc) 100 Units/Ml SUB-Q 1 units HS [facility] Administration Protocol Ondansetron HCl 4 mg 01/16/25 13:27 Ondansetron Inj 4 Mg/2 Ml Vial IV PUSH Q4H PRN Nausea Polyethylene Glycol 17 gm 01/16/25 21:13 Polyethylene Glycol 3350 17 Gm Powd.Pack PO QAM PRN Constipation Senna/Docusate Sodium 2 tab 01/16/25 21:13 Senna/Docusate Sodium Tablet PO HS PRN Constipation Simvastatin 40 mg 01/16/25 21:30 01/18/25 20:42 Simvastatin 20 Mg Tablet PO 40 mg HS [facility] Administration Sodium Chloride 20 ml 01/16/25 18:04 Central Line Flush IV PUSH PRN PRN after blood draws Venlafaxine HCl 150 mg 01/20/25 08:00 Venlafaxine Hcl Xr 75 Mg Cap.Er.24h PO DAILY@0800 [facility] Radiology Results: ITS Impressions Head CT 01/16/25 11:27 IMPRESSION: 1. No acute intra-abdominal/pelvic process. Chest X-Ray 01/16/25 17:56 IMPRESSION: 1: NO ACUTE CARDIOPULMONARY DISEASE. Renal Ultrasound 01/17/25 15:01 Impression: 1: Unremarkable renal ultrasound. No stones, masses or hydronephrosis. Labs Labs: Laboratory Tests 01/19/25 06:17 01/19/25 06:17 Calcium 9.5 Phosphorus 3.8 Iron 62 TIBC 228 L % Saturation 27 Ferritin 183.00 Albumin 3.5 [place] 0.6 Microbiology 01/17/25 08:12 Blood Blood Culture - Preliminary 01/17/25 08:08 Blood Blood Culture - Preliminary 01/17/25 08:33 Urine [place] Urine Culture - Final
[2025-01-19 11:45] VITALS: BP 124/56; PULSE 97; RESP 16; TEMP 36.8; O2SAT 97
--- NOTE | 2025-01-19 12:24 | PM.IMPN ---
Progress Note: A&P Assessment and Plan (1) [place] toxicity: Code(s): T56.891A - Toxic effect of other metals, accidental (unintentional), initial encounter Status: Acute Assessment and Plan: Patient is on lithium and now with elevated level likely secondary to impaired renal function Poison control and Nephrology were consulted Emergently dialyzed [place] level decreased 0.[address] Cordoba who cleared patient for discharge Dialysis done and dialysis catheter to be removed Stopped IVF Psych eval recommended discontinuing [place] and to decreased Venlafaxine to 150mg from 300mg Appreciate input from Psychiatry (2) Schizophrenia: Code(s): F20.9 - Schizophrenia, unspecified Status: Acute Assessment and Plan: Hold lithium Continue Abilify Cogentin and venlafaxine XR Psych consulted for psych meds adjustment continue above meds adjustement per Psych (3) Type 2 diabetes mellitus: Code(s): E11.9 - Type 2 diabetes mellitus without complications Status: Acute Assessment and Plan: Sliding scale insulin Hold metformin (4) GRUPO (acute kidney injury): Code(s): N17.9 - Acute kidney failure, unspecified Status: Acute Assessment and Plan: Presented with elevated creatinine. On review of chart patient appears to have chronic kidney disease Presented with creatinine of 3.63. It is improving with IV fluids [place] catheter for accurate I&Os resolved to baseline, Cr 1.31 Cr 1.47 today Nephrology following and recommended discontinuing [place] which is supported by psych monitor (5) Encephalopathy: Code(s): G93.40 - Encephalopathy, unspecified Status: Acute Assessment and Plan: Baseline unknown. Patient appears encephalopathy. Head CT was negative. Likely toxic metabolic encephalopathy UDS was negative Avoid sedatives resolved (6) UTI (urinary tract infection): Code(s): N39.0 - Urinary tract infection, site not specified Status: Acute Assessment and Plan: urine culture negative, discontinued Rocephin Plan DVT prophylaxis -Lovenox Nutrition -renal diet Code Status - Full Code Subjective Date/time seen: 01/19/25 12:24 Interval history: Comfortable at bedside PT/OT eval recommended rehab placement Awaiting placement Review of Systems Review of Systems: ROS unobtainable: Yes unobtainable due to medical condition and unobtainable due to mental status Exam Narrative: General: Pt is alert confused and in NAD Lungs/Chest: Trachea central Clear BS B/L, No crackles or wheezing. Cardiac: RRR. Normal S1 S2. No murmurs Circulation: Pedal pulses are intact and symmetrical. Abdomen: Normal bowel sounds.. Soft. NT. ND. Extremities: No clubbing, cyanosis or edema. Warm : Bradley in place Neurologic: Follows commands. Moves all 4 extremities PERRL fine tremor scenes in the hands AO x1 Skin: No Rash Objective Data Vital Signs Vital Signs: Vital Signs - 24 hr 01/18/25 14:00 01/18/25 16:00 01/18/25 16:00 Temperature 98.2 F Pulse Rate 74 76 Respiratory Rate 16 Blood Pressure 129/78 Pulse Oximetry 97 97 Oxygen Delivery Room Air 01/18/25 16:00 01/18/25 18:20 01/18/25 20:00 Temperature 98.9 F Pulse Rate 75 78 Respiratory Rate 14 Blood Pressure 133/80 Pulse Oximetry 95 Oxygen Delivery Room Air 01/18/25 20:00 01/19/25 00:00 01/19/25 04:00 Temperature 98.2 F 97.4 F L Pulse Rate 81 65 Respiratory Rate 18 20 Blood Pressure 121/71 121/67 Pulse Oximetry 97 95 Oxygen Delivery Room Air 01/19/25 07:35 01/19/25 09:38 01/19/25 11:45 Temperature 98.6 F 98.2 F Pulse Rate 69 97 Respiratory Rate 18 16 Blood Pressure 112/74 124/56 L Pulse Oximetry 100 97 Oxygen Delivery Room Air 01/19/25 11:55 Temperature Pulse Rate Respiratory Rate Blood Pressure Pulse Oximetry Oxygen Delivery Room Air Intake/Output Intake/Output: Intake & Output 01/16/25 01/17/25 01/18/25 01/19/25 23:59 23:59 23:59 23:59 Intake Total 1999 3319.2 4142 1905.6 Output Total 1799 4200 3525 550 Balance 200 -880.8 617 1355.6 Meds/Results Medications: Active Medications Generic Name Dose Route Start Last Admin Trade Name Freq PRN Reason Stop Dose Admin Acetaminophen 650 mg 01/16/25 13:27 Acetaminophen 325 Mg Tablet PO Q4H PRN Mild Pain (1-3) or Fever Albuterol 1 puff 01/16/25 21:13 Albuterol Sulfate (*Sp) Aerosol 1 Puff INHALATION QID PRN Shortness Of Breath Or Wheezing Albuterol/Ipratropium 3 ml 01/17/25 07:52 Ipratropium 0.5 Mg/Albuterol Sulfate 2.5 Mg Ampul.Neb 3 Ml INHALATION Q6HRT PRN Wheezing Aripiprazole 5 mg 01/16/25 23:55 01/18/25 20:42 Aripiprazole 5 Mg Tablet PO 5 mg HS RAZ Administration Aspirin 81 mg 01/17/25 09:00 01/19/25 09:42 Aspirin 81 Mg Chewable Tablet PO 81 mg DAILY RAZ Administration Benztropine Mesylate 1 mg 01/16/25 23:50 01/18/25 20:42 Benztropine Mesylate 1 Mg Tablet PO 1 mg HS RAZ Administration Dextrose 12.5 gm 01/16/25 15:06 01/17/25 01:22 Dextrose 50% 25 Gm/50 Ml Syringe IV PUSH 12.5 gm PRN PRN Administration Hypoglycemia Protocol Enoxaparin Sodium 40 mg 01/17/25 09:00 01/19/25 09:42 Enoxaparin 40 Mg/0.4 Ml Syringe SUB-Q 40 mg DAILY RAZ Administration Folic Acid 1 mg 01/18/25 09:00 01/19/25 09:42 Folic Acid 1 Mg Tablet PO 1 mg DAILY RAZ Administration Glucagon 1 mg 01/16/25 15:06 Glucagon For Inj 1 Mg Vial IM PRN PRN Hypoglycemia Protocol Glucose 15 gm 01/16/25 15:06 Glucose Oral Gel 15 Gm Of Glucse In 37.5 Gm Tube PO PRN PRN Hypoglycemia Protocol Ceftriaxone Sodium 1 gm/ 50 mls @ 100 mls/hr 01/17/25 14:00 01/18/25 15:15 Sodium Chloride IVPB 100 mls/hr Q24H RAZ Administration Dextrose 1,000 mls @ 100 mls/hr 01/16/25 15:06 Dextrose 5% 1,000 Ml IVPB PRN PRN Hypoglycemia Protocol Albumin Human 50 mls @ 999 mls/hr 01/17/25 06:02 Albutein IVPB 02/16/25 06:01 Q10M PRN HYPOTENSION Lactated Ringer's 1,000 mls @ 75 mls/hr 01/17/25 07:55 01/19/25 10:21 Lr - Lactated Ringers Iv IV CONT 75 mls/hr .[id number] RAZ Infusion Insulin Aspart 3 - 6 units 01/16/25 17:00 01/19/25 12:05 Insulin Aspart (*Bkc) 100 Units/Ml SUB-Q Not Given [facility] Protocol Insulin Aspart 1 - 3 units 01/16/25 21:00 01/18/25 20:42 Insulin Aspart (*Bkc) 100 Units/Ml SUB-Q 1 units HS RAZ Administration Protocol Ondansetron HCl 4 mg 01/16/25 13:27 Ondansetron Inj 4 Mg/2 Ml Vial IV PUSH Q4H PRN Nausea Polyethylene Glycol 17 gm 01/16/25 21:13 Polyethylene Glycol 3350 17 Gm Powd.Pack PO QAM PRN Constipation Senna/Docusate Sodium 2 tab 01/16/25 21:13 Senna/Docusate Sodium Tablet PO HS PRN Constipation Simvastatin 40 mg 01/16/25 21:30 01/18/25 20:42 Simvastatin 20 Mg Tablet PO 40 mg HS RAZ Administration Sodium Chloride 10 ml 01/16/25 22:00 01/19/25 05:52 Central Line Flush IV PUSH 10 ml Q8HR RAZ Administration Sodium Chloride 20 ml 01/16/25 18:04 Central Line Flush IV PUSH PRN PRN after blood draws Venlafaxine HCl 300 mg 01/17/25 09:00 01/18/25 09:56 Venlafaxine Hcl Xr 75 Mg Cap.Er.24h PO 300 mg DAILY@0800 RAZ Administration Radiology Results: ITS Impressions Head CT 01/16/25 11:27 IMPRESSION: 1. No acute intra-abdominal/pelvic process. Chest X-Ray 01/16/25 17:56 IMPRESSION: 1: NO ACUTE CARDIOPULMONARY DISEASE. Renal Ultrasound 01/17/25 15:01 Impression: 1: Unremarkable renal ultrasound. No stones, masses or hydronephrosis. Labs Labs: Laboratory Results - last 24 hr 01/18/25 01/18/25 01/19/25 15:39 20:09 00:08 WBC RBC Hgb Hct MCV MCH MCHC RDW Plt Count MPV Immature Gran % (Auto) Neut % (Auto) Lymph % (Auto) Haines % (Auto) Eos % (Auto) Baso % (Auto) Lymph # (Auto) Haines # (Auto) Eos # (Auto) Baso # (Auto) Abs Immat Gran (auto) Absolute Neuts (auto) Absolute Nucleated RBC Nucleated RBC % Sodium Potassium Chloride Carbon Dioxide Anion Gap BUN Creatinine Estim Creat Clear Calc Estimated GFR Glucose POC Capillary Glucose 110 H 220 H 105 Calcium Phosphorus Iron TIBC % Saturation Ferritin Albumin [place] 01/19/25 01/19/25 01/19/25 04:31 06:11 06:17 WBC 5.9 RBC 3.21 L Hgb 9.4 L Hct 28.9 L MCV 90.0 MCH 29.3 MCHC 32.5 RDW 13.4 Plt Count 148 L MPV 11.3 H Immature Gran % (Auto) 0.3 Neut % (Auto) 59.9 Lymph % (Auto) 24.3 Haines % (Auto) 11.1 H Eos % (Auto) 4.1 Baso % (Auto) 0.3 Lymph # (Auto) 1.43 Haines # (Auto) 0.7 H Eos # (Auto) 0.2 Baso # (Auto) 0.0 Abs Immat Gran (auto) 0.02 Absolute Neuts (auto) 3.5 Absolute Nucleated RBC 0.000 Nucleated RBC % 0.0 Sodium 140 Potassium 3.8 Chloride 108 H Carbon Dioxide 24 Anion Gap 8 BUN 7 L Creatinine 1.47 H Estim Creat Clear Calc 66 Estimated GFR 51 L Glucose 93 POC Capillary Glucose 95 Calcium 9.5 Phosphorus 3.8 Iron 62 TIBC 228 L % Saturation 27 Ferritin 183.00 Albumin 3.5 [place] 0.6 01/19/25 01/19/25 07:40 11:47 WBC RBC Hgb Hct MCV MCH MCHC RDW Plt Count MPV Immature Gran % (Auto) Neut % (Auto) Lymph % (Auto) [place]aines % (Auto) Eos % (Auto) Baso % (Auto) Lymph # (Auto) Haines # (Auto) Eos # (Auto) Baso # (Auto) Abs Immat Gran (auto) Absolute Neuts (auto) Absolute Nucleated RBC Nucleated RBC % Sodium Potassium Chloride Carbon Dioxide Anion Gap BUN Creatinine Estim Creat Clear Calc Estimated GFR Glucose POC Capillary Glucose 91 168 H Calcium Phosphorus Iron TIBC % Saturation Ferritin Albumin [place] Quality VTE Prophylaxis VTE prophylaxis: pharmacologic ordered
[2025-01-19] MEDS: VENLAFAXINE HCL XR 75 MG CAP.ER.24H 150 MG PO (14:19)
[2025-01-19 16:30] VITALS: BP 116/75; PULSE 78; RESP 17; TEMP 36.2; O2SAT 98
[2025-01-19 20:00] VITALS: BP 127/82; PULSE 70; RESP 14; TEMP 36.3; O2SAT 99
[2025-01-19] MEDS: SIMVASTATIN 20 MG TABLET 40 MG PO (20:08)
[2025-01-19] MEDS: BENZTROPINE MESYLATE 1 MG TABLET PO (20:08)
[2025-01-20] VITALS: BP 113/64; PULSE 66; RESP 18; TEMP 36.5; O2SAT 98
[2025-01-20 04:00] VITALS: BP 116/82; PULSE 61; RESP 16; TEMP 36.4; O2SAT 96
[2025-01-20 06:14] LABS: Hematocrit 28.9 % (42.0-52.0); Hemoglobin 9.6 g/dL (14.0-18.0); Immature Granulocyte Percent A 0.3 % (0-0.5); Lymphocytes Absolute Auto 1.75 K/mm3 (0.9-3.2); Mean Corpuscular HGB Conc 33.2 g/dl (32-36); Mean Corpuscular Hemoglobin 29.9 pg (26-34); Mean Corpuscular Volume 90.0 fl (80-100); Nucleated Red Blood Cells Absolute Auto 0.000 K/mm3 (0.0-0.012); Nucleated Red Blood Cells Perc 0.0 % (0.0-0.2); Platelet Count Result 157 k/mm3 (150-375); Red Blood Count 3.21 M/mm3 (4.6-6.20); White Blood Count 7.3 K/mm3 (4.5-10.0)
[2025-01-20 06:45] LABS: Alanine Aminotransferase 22 U/L (6-50); Albumin Level 3.5 g/dL (3.5-5.1); Alkaline Phosphatase 83 U/L (38-126); Anion Gap 8 mmol/L (4-12); Aspartate Amino Transferase 24 U/L (17-59); Bilirubin,Total 0.3 mg/dL (0.2-1.3); Blood Urea Nitrogen 9 mg/dL (9-20); Calcium 9.5 mg/dL (8.4-10.2); Carbon Dioxide 24 mmol/L (22-30); Chloride 108 mmol/L (98-107); Estimated CRCL calculation 62 ml/min; Estimated Glomerular Filt Rate 48; Glucose 88 mg/dL (65-110); Magnesium 1.6 mg/dL (1.6-2.3); Potassium 3.7 mmol/L (3.4-5.0); Sodium 140 mmol/L (137-145); Total Protein 6.4 g/dL (6.3-8.2)
[2025-01-20 08:00] VITALS: BP 132/84; PULSE 80; RESP 18; TEMP 36.4; O2SAT 99
[2025-01-20] MEDS: FOLIC ACID 1 MG TABLET PO (08:29)
[2025-01-20] MEDS: ASPIRIN 81 MG CHEWABLE TABLET PO (08:29)
[2025-01-20] MEDS: VENLAFAXINE HCL XR 75 MG CAP.ER.24H 150 MG PO (08:29)
[2025-01-20] MEDS: ENOXAPARIN 40 MG/0.4 ML SYRINGE SUB-Q (08:30)
[2025-01-20] MEDS: MAGNESIUM SULF 1 GM/D5W 100 ML 1 GM/100 ML BAG IVPB (09:51)
[2025-01-20 12:00] VITALS: BP 108/68; PULSE 80; RESP 18; TEMP 36.4; O2SAT 96
--- NOTE | 2025-01-20 14:12 | P.DS_ITS ---
DS: Admitting Diagnosis Discharge Date 01/20/25 Admitting Diagnosis Altered mental status DS: Discharge Diagnosis Discharge Diagnosis (1) Mar[place] toxicity: Code(s): T56.891A - Toxic effect of other metals, accidental (unintentional), initial encounter Status: Resolved DS: Summary Hospital Course Hospital Course: 49-year-old male with past medical history of schizoaffective disorder, hypertension diabetes presents the hospital with altered mental status. Patient presented to the ED a few days ago was diagnosed with a UTI, dehydration and discharged back to his [facility] living. HPI is limited as patient only knows name. Lab work in the ED shows leukocytosis at 11.7, hemoglobin of 10.3, sodium 134, BUN of 48, creatinine of 3.63 with baseline being about 1.32 GFR 18, calcium 10.3 UA is cloudy with trace leukocyte esterase. Head CT has no acute findings. Upon medication review patient is on lithium will order lithium level. [place] level 2.5. Poison Control recommends dialysis, trending lithium levels, aggressive fluid hydration. Nephrology called will make arrangements with dialysis nurse. Surgery called will place emergent Shimon. ICU accepts patient Nephrology was consulted adn patient was dialyzed adn lithium level normalized. Consulted psych and recommended permanently discontinued, continue current dose of Abilify adn decreased Venlafaxine to 150mg daily to avoid triggering manic episodes. Patient will continue follow up with Psych as instructed. renal function is within baseline. F/u with PCP in 3-5 days and F/u with nephrology as instructed Time Spent with Patient Time attestation: Total time spent providing and/or coordinating discharge services: DS: Data Data Completed and Pending Labs on day of discharge: Labs from last 24 hours 01/20/25 01/20/25 01/20/25 11:46 08:08 04:47 WBC 7.3 RBC 3.21 L Hgb 9.6 L Hct 28.9 L MCV 90.0 MCH 29.9 MCHC 33.2 RDW 13.6 Plt Count 157 MPV 11.5 H Immature Gran % (Auto) 0.3 Neut % (Auto) 63.1 Lymph % (Auto) 24.1 Sargent % (Auto) 8.3 Eos % (Auto) 3.9 Baso % (Auto) 0.3 Lymph # (Auto) 1.75 Sargent # (Auto) 0.6 Eos # (Auto) 0.3 Baso # (Auto) 0.0 Abs Immat Gran (auto) 0.02 Absolute Neuts (auto) 4.6 Absolute Nucleated RBC 0.000 Nucleated RBC % 0.0 Sodium 140 Potassium 3.7 Chloride 108 H Carbon Dioxide 24 Anion Gap 8 BUN 9 Creatinine 1.55 H Estim Creat Clear Calc 62 Estimated GFR 48 L Glucose 88 POC Capillary Glucose 103 103 Calcium 9.5 Magnesium 1.6 Total Bilirubin 0.3 AST 24 ALT 22 Alkaline Phosphatase 83 Total Protein 6.4 Albumin 3.5 01/20/25 01/20/25 01/19/25 04:38 00:14 19:53 WBC RBC Hgb Hct MCV MCH MCHC RDW Plt Count MPV Immature Gran % (Auto) Neut % (Auto) Lymph % (Auto) Sargent % (Auto) Eos % (Auto) Baso % (Auto) Lymph # (Auto) Sargent # (Auto) Eos # (Auto) Baso # (Auto) Abs Immat Gran (auto) Absolute Neuts (auto) Absolute Nucleated RBC Nucleated RBC % Sodium Potassium Chloride Carbon Dioxide Anion Gap BUN Creatinine Estim Creat Clear Calc Estimated GFR Glucose POC Capillary Glucose 90 152 H 115 H Calcium Magnesium Total Bilirubin AST ALT Alkaline Phosphatase Total Protein Albumin 01/19/25 16:34 WBC RBC Hgb Hct MCV MCH MCHC RDW Plt Count MPV Immature Gran % (Auto) Neut % (Auto) Lymph % (Auto) Sargent % (Auto) Eos % (Auto) Baso % (Auto) Lymph # (Auto) Sargent # (Auto) Eos # (Auto) Baso # (Auto) Abs Immat Gran (auto) Absolute Neuts (auto) Absolute Nucleated RBC Nucleated RBC % Sodium Potassium Chloride Carbon Dioxide Anion Gap BUN Creatinine Estim Creat Clear Calc Estimated GFR Glucose POC Capillary Glucose 112 H Calcium Magnesium Total Bilirubin AST ALT Alkaline Phosphatase Total Protein Albumin Preliminary micro results at discharge 01/17/25 08:12 Blood Culture - Preliminary Blood 01/17/25 08:08 Blood Culture - Preliminary Blood Discharge Plan Discharge Attending physician on discharge: Bertha Garcia Consulting providers: Chucky Hernandez; Arik Schwarz Sanjay K. Discharging Clinician: Bertha Garcia Anticipated Discharge Date/Time: 01/20/25 14:01 Patient Disposition: [facility] Activity: as tolerated Diet: as tolerated and diabetic Patient Instructions: Antibiotic Form Patient Language: Tunisian Stand Alone Forms: General Discharge Information Follow-up/Referrals: Christopher Sanchez MD [Primary Care Provider, Hospitalist] Referral Note: F/u with PCP in 3-5 days Chucky Hernandez MD [Physician, Nephrology] Referral Note: F/u with nephrology as instructed Hector Wilcox MD [Physician, Psychiatry] Referral Note: F/u with psych as instructed Discharge Medications: Continued sennosides-docusate sodium [Senna-Time S] 8.6-50 mg tablet 2 tab-cap PO HS PRN (Reason: constipation) fluticasone propion-salmeterol 250-50 mcg/dose blister with device 1 inh INHALATION Q12H metformin 1,000 mg tablet 1,000 mg PO BID losartan-hydrochlorothiazide 50-12.5 mg tablet 1 tablet PO DAILY diclofenac sodium 1 % gel See Rx Instructions TOPICAL .COMPLEX PRN (Reason: pain) Rx Instructions: apply to bilateral knees bid topically ; PRN; aripiprazole 10 mg tablet 5 mg PO HS Januvia 50 mg tablet 50 mg PO DAILY aspirin 81 mg capsule 81 mg PO DAILY folic acid 1 mg tablet 1 mg PO DAILY simvastatin 40 mg tablet 40 mg PO HS benztropine 1 mg tablet 1 mg PO HS omega [id number]-fish oil [Fish Oil] 1,000 (120-180) mg capsule 1 cap PO HS Invega Trinza 819 mg/2.63 mL syringe 819 mg IM .every 3 months Patient Comments: Due February 01 desipramine 150 mg tablet 150 mg PO HS polyethylene glycol 3350 [Miralax] 17 gram Powder In Packet 17 g PO QAM PRN (Reason: constipation) nicotine [Nicoderm CQ] 21 mg/24 hr Patch 24 Hour 1 patch transdermal DAILY PRN (Reason: withdrawal symptoms) albuterol sulfate [Ventolin HFA] 90 mcg/actuation HFA aerosol inhaler 1 inh inhalation QID PRN (Reason: shortness of breath or wheezing) cholecalciferol (vitamin D3) 125 mcg (5,000 unit) tablet 50,000 unit PO MONTHLY Patient Comments: patient takes on the third of each month mecobalamin (vitamin B12) 1,000 mcg tablet,chewable 1,000 mcg PO DAILY Changed venlafaxine 150 mg capsule,extended release 24hr 150 mg PO DAILY 30 Days Qty: 0 0RF Discontinued lithium carbonate 300 mg capsule 300 mg PO BID Date of admission: 01/16/25 13:27 Primary Care Provider: Christopher Sanchez Admitting Provider: Bertha Garcia Attending physician on admission: Bertha Garcia Condition: Stable
== END 2025-01-20 16:00 | DRG 683 ==
LOC: ANHED 13:27 → ANH3MEDSUR 17:03 → ANHICU 01-17 09:35 → ANHIMU 01-17 15:12 → ANH3MEDSUR 01-18 18:10
PROVIDERS: Internal Medicine; Internal Medicine Nephrology; Nurse Practitioner Gerontology; Admitting Provider Internal Medicine; Emergency Provider Family Medicine; PCP Internal Medicine; Visit Provider Internal Medicine
DX: N17.9 Acute kidney failure, unspecified (principal); G93.40 Encephalopathy, unspecified; N39.0 Urinary tract infection, site not specified; T43.595A Adverse effect of other antipsychotics and neuroleptics, initial encounter; N18.31 Chronic kidney disease, stage 3a; F25.9 Schizoaffective disorder, unspecified; I12.9 Hypertensive chronic kidney disease with stage 1 through stage 4 chronic kidney disease, or unspecified chronic kidney disease; E11.22 Type 2 diabetes mellitus with diabetic chronic kidney disease; E87.5 Hyperkalemia; G47.33 Obstructive sleep apnea (adult) (pediatric); J44.9 Chronic obstructive pulmonary disease, unspecified; D64.9 Anemia, unspecified; F17.210 Nicotine dependence, cigarettes, uncomplicated; Z79.84 Long term (current) use of oral hypoglycemic drugs; Z99.89 Dependence on other enabling machines and devices; Z86.59 Personal history of other mental and behavioral disorders; Z79.82 Long term (current) use of aspirin
CPT/HCPCS: 36415; 70450; 71045; 76770; 80048; 80053; 80069; 80143; 80178; 80307; 81001; 82077; 82550; 82570; 82728; 82948; 83540; 83550; 83605; 83735; 84100; 84156; 84300; 84540; 85025; 85055; 85610; 85730; 85999; 86706; 87040; 87086; 87340; 93005; 96361; 96365; 96372; 96375; 97161; 97166; 99285; A9270; C1751; G0257; J0696; J1644; J1650; J1815; J2359; J3475; J7030; J7120